=== PATIENT | female | born 1955 | race Caucasian/White ===

== ENCOUNTER → 2016-06-14 | Outpatient (REF) | payer BC ==
[2016-06-14 12:06] LABS: INR 0.89
[2016-06-14 12:19] LABS: BASO % 0.4 % (0.0-1.0); EOS # 0.9 K/mm3 (0.0-0.50); EOS % 8.3 % (0.0-3.0); LARGE UNSTAINED CELL # 0.3 K/mm3 (0.0-0.4); LARGE UNSTAINED CELL % 2.2 % (0.0-4.0); LYMPH # 2.4 K/mm3 (1.5-4.5); LYMPH % 21.3 % (24.0-44.0); MEAN CORPUSCULAR HEMOGLOBIN 30.4 pg (27.0-33.0); MEAN CORPUSCULAR HGB CONC 31.9 g/dl (32.0-36.5); MEAN CORPUSCULAR VOLUME 95.5 fl (80.0-96.0); MONO # 0.8 K/mm3 (0.0-0.8); MONO % 7.3 % (0.0-5.0); NEUTROPHILS # 6.8 K/mm3 (1.8-7.7); NEUTROPHILS % 60.5 % (36.0-66.0); PLATELET COUNT, AUTOMATED 205 k/mm3 (150-450); RED CELL DISTRIBUTION WIDTH 12.8 % (11.5-14.5); WHITE BLOOD COUNT 11.2 K/mm3 (4.0-10.0)
[2016-06-14 12:21] LABS: ANION GAP 8 MEQ/L (8-16); BLOOD UREA NITROGEN 15 MG/DL (7-18); CALCIUM LEVEL 8.6 MG/DL (8.8-10.2); CARBON DIOXIDE LEVEL 29 MEQ/L (21-32); CHLORIDE LEVEL 108 MEQ/L (98-107); CREATININE FOR GFR 0.67 MG/DL (0.55-1.02); GLOMERULAR FILTRATION RATE > 60.0 (>45); GLUCOSE, FASTING 158 MG/DL (80-110); SODIUM LEVEL 145 MEQ/L (136-145)
== END ==
LOC: M LABDRAW1 11:22
PROVIDERS: ATTEND Surgery Vascular Surgery
DX: Z01.818 Encounter for other preprocedural examination (principal); D69.8 Other specified hemorrhagic conditions; I70.211 Atherosclerosis of native arteries of extremities with intermittent claudication, right leg

== ENCOUNTER → 2016-07-29 | Outpatient (REF) | payer BC ==
[2016-07-29 17:53] LABS: ANION GAP 5 MEQ/L (8-16); BLOOD UREA NITROGEN 15 MG/DL (7-18); CALCIUM LEVEL 8.7 MG/DL (8.8-10.2); CARBON DIOXIDE LEVEL 32 MEQ/L (21-32); CHLORIDE LEVEL 105 MEQ/L (98-107); CREATININE FOR GFR 0.75 MG/DL (0.55-1.02); GLOMERULAR FILTRATION RATE > 60.0 (>45); GLUCOSE, FASTING 246 MG/DL (80-110); POTASSIUM SERUM 4.1 MEQ/L (3.5-5.1); SODIUM LEVEL 142 MEQ/L (136-145)
== END ==
LOC: M LABDRAWP 17:05
PROVIDERS: ATTEND Nurse Practitioner Adult Health
DX: I70.211 Atherosclerosis of native arteries of extremities with intermittent claudication, right leg (principal); I10 Essential (primary) hypertension

== ENCOUNTER → 2016-09-02 | Outpatient (REF) | payer BC ==
[2016-09-02 16:11] LABS: ANION GAP 9 MEQ/L (8-16); BLOOD UREA NITROGEN 18 MG/DL (7-18); CALCIUM LEVEL 8.9 MG/DL (8.8-10.2); CARBON DIOXIDE LEVEL 29 MEQ/L (21-32); CHLORIDE LEVEL 105 MEQ/L (98-107); CREATININE FOR GFR 0.87 MG/DL (0.55-1.02); GLOMERULAR FILTRATION RATE > 60.0 (>45); GLUCOSE, FASTING 307 MG/DL (80-110); POTASSIUM SERUM 4.4 MEQ/L (3.5-5.1); SODIUM LEVEL 143 MEQ/L (136-145)
== END ==
LOC: M LABDRAWP 15:36
PROVIDERS: ATTEND Nurse Practitioner Adult Health
DX: I10 Essential (primary) hypertension (principal); E10.40 Type 1 diabetes mellitus with diabetic neuropathy, unspecified

== ENCOUNTER → 2016-09-07 | Outpatient (CLI) | payer BC ==
--- NOTE | 2016-09-07 12:24 | REP ---
Clinical: Wheezing and shortness of breath . Comparison: 10/13/2015 . Technique: PA and lateral. Findings: The mediastinum and cardiac silhouette are normal. The lung back demonstrate chronic-appearing interstitial changes without acute consolidation, effusion, or pneumothorax. The skeletal structures are intact and normal. Impression: Chronic stable changes. No acute cardiopulmonary process. Signed by Malcolm Granados MD 09/07/2016 12:15 P
== END ==
LOC: M SMT 11:58
PROVIDERS: ATTEND Nurse Practitioner Family
DX: R06.2 Wheezing (principal); R06.02 Shortness of breath

== ENCOUNTER → 2016-10-11 | Outpatient (CLI) | payer BC ==
--- NOTE | 2016-10-11 18:19 | REP ---
REASON: Otalgia on the right. COMPARISON: 04/04/2015 which was normal. Bilateral IAC CT shows normal ossicles. There is a minimal amount of soft-tissue density seem adherent to the tympanic part of the chordae tympany on the right. This is confined. There is no abnormal soft-tissue density seen in the external auditory canal on either side. The tympanic membrane is intact but retracted right greater than left. This represents a change from the prior exam. The scutum is again seen to be sharp bilaterally. He tegument is again seen to be intact bilaterally. [place]ak space is clear bilaterally. The hypotympanum is clear bilaterally. The cochlea and semicircular canals are unchanged from the prior exam. IMPRESSION: 1. Retracted tympanic membrane bilaterally, right greater than left representing a change from the prior exam. 2. Small amount of soft tissue density along the tympanic part of the chordae tympany on the right but when compared to the prior exam this shows only a slight increase. Examination is otherwise unremarkable and stable. Signed by Chris Cotton DO 10/11/2016 07:02 P
== END ==
LOC: M RAD 16:30
PROVIDERS: ATTEND Physician Assistant Medical
DX: H73.893 Other specified disorders of tympanic membrane, bilateral (principal)

== ENCOUNTER → 2017-05-04 | Outpatient (CLI) | payer BC | LOC: M SMT 11:02 | DX: R05 Cough (principal); R06.02 Shortness of breath | CPT/HCPCS: 71046 ==

== ENCOUNTER → 2017-09-26 | Outpatient (REF) | payer BC ==
[2017-09-26 19:15] LABS: ANION GAP 6 MEQ/L (8-16); BLOOD UREA NITROGEN 16 MG/DL (7-18); CALCIUM LEVEL 8.6 MG/DL (8.8-10.2); CARBON DIOXIDE LEVEL 30 MEQ/L (21-32); CHLORIDE LEVEL 106 MEQ/L (98-107); CREATININE FOR GFR 0.96 MG/DL (0.55-1.30); GLOMERULAR FILTRATION RATE > 60.0 (>45); GLUCOSE, FASTING 242 MG/DL (70-100); POTASSIUM SERUM 4.2 MEQ/L (3.5-5.1); SODIUM LEVEL 142 MEQ/L (136-145)
== END ==
LOC: M LABDRAWP 17:18
DX: E10.40 Type 1 diabetes mellitus with diabetic neuropathy, unspecified (principal); E10.21 Type 1 diabetes mellitus with diabetic nephropathy; I10 Essential (primary) hypertension
CPT/HCPCS: 80048

== ENCOUNTER → 2018-04-10 | Outpatient (CLI) | payer BC ==
--- NOTE | 2018-04-11 06:02 | REP ---
Clinical: Lung screening. History of nicotine dependence Comparison: None Technique: Axial low-dose noncontrast images from the thoracic inlet to the upper abdomen using lung screening technique. Findings: The lung back are well-aerated. Chronic-appearing scattered interstitial changes are noted. Scattered bilateral soft tissue densities primarily noted in the bilateral apices as well as basilar right upper lobe (image 47) measure up to approximately 9.9 mm and are otherwise nonspecific in appearance. No consolidation, pleural effusion/reaction or pneumothorax. Tracheobronchial tree is patent. Mediastinum demonstrates atherosclerotic changes of the coronary arteries without cardiomegaly. Impression: Lung-RADS category IV-A. Management recommendations include 3-month low-dose CT follow-up exam with the probability of malignancy in the 5-15% range. Electronically Signed by Malcolm Granados MD 04/11/2018 05:54 A
== END ==
LOC: M RAD 11:04
PROVIDERS: ATTEND Internal Medicine Pulmonary Disease
DX: Z12.2 Encounter for screening for malignant neoplasm of respiratory organs (principal); F17.218 Nicotine dependence, cigarettes, with other nicotine-induced disorders; R91.8 Other nonspecific abnormal finding of lung field

== ENCOUNTER → 2018-04-16 | Outpatient (REF) | payer BC ==
[2018-04-16 13:20] LABS: BLOOD UREA NITROGEN 18 MG/DL (7-18); CALCIUM LEVEL 8.9 MG/DL (8.8-10.2); CARBON DIOXIDE LEVEL 28 MEQ/L (21-32); CHLORIDE LEVEL 105 MEQ/L (98-107); CREATININE FOR GFR 0.74 MG/DL (0.55-1.30); GLOMERULAR FILTRATION RATE > 60.0 (>45); GLUCOSE, FASTING 155 MG/DL (70-100); POTASSIUM SERUM 4.2 MEQ/L (3.5-5.1); SODIUM LEVEL 141 MEQ/L (136-145)
== END ==
LOC: M LABDRAWP 12:55
PROVIDERS: ATTEND Nurse Practitioner Adult Health
DX: I10 Essential (primary) hypertension (principal)

== ENCOUNTER → 2018-06-29 | Outpatient (CLI) | payer OTHER ==
--- NOTE | 2018-06-29 09:58 | REP ---
CT of the chest without IV contrast: Comparison is the low-dose lung screening CT dated 04/10/2018. There are the following lung nodules: Image 13, right apex, 6 mm. Image 15, right apex, pleural-based, 7 mm. Image 17 right 6 mm. Image 17 right apex 5 mm. Image 17, 5 mm, right apex. Image 20, 15 mm, right apex. Image 20, 6 mm, left apex. Image 21, 6 mm, left apex. Image 33, 5 mm, right upper lobe. Image 37, 7 mm, superior segment right lower lobe. Image 48, 8 mm, anterior inferior right upper lobe along the minor fissure. Image 51, 9 mm, anterior inferior right upper lobe along the minor fissure. Image 54, 6 mm, right middle lobe medial segment versus anterior inferior right upper lobe. Image 75, 5 mm, pleural-based, left lower lobe. There are no acute infiltrates. There are no pleural effusions. There is an anterior mediastinal node measuring up to 7 mm short axis, borderline enlarged. There is no axillary lymph node enlargement. In the absence of IV contrast the study is insensitive for hilar lymph node enlargement. The unenhanced thoracic aorta is unremarkable except for occasional calcified atheroma. Cardiac size is normal. In the visualized upper abdomen there is no adrenal mass. There are calcifications in the renal sanna bilaterally, likely vascular atheromatous calcifications. Impression: Multiple lung nodules as described. Borderline enlarged anterior mediastinal node. Electronically Signed by Kelechi Briceno MD 06/29/2018 09:50 A
== END ==
LOC: M RAD 08:35
PROVIDERS: ATTEND Internal Medicine Pulmonary Disease
DX: R91.8 Other nonspecific abnormal finding of lung field (principal)

== ENCOUNTER → 2018-10-04 | Outpatient (CLI) | payer OTHER ==
--- NOTE | 2018-10-04 15:30 | REP ---
CT CHEST WITHOUT IV CONTRAST: CT chest performed without IV contrast. Sagittal and coronal reconstruction images are performed. COMPARISON: 06/29/2018 Once again there are multiple subcentimeter nodular opacities bilaterally. The vast majority are in the range of about 2 to 4 mm in diameter. One nodule in the superior segment of the right lower lobe has slightly increased in size measuring 6 mm in diameter. It is seen on image 40. No new nodules are seen and all the other nodules are stable. There is some pleural thickening along the minor fissure. Subcentimeter mediastinal lymph nodes are present as well as axillary lymph nodes. No significant adenopathy is seen. There is moderate atherosclerotic calcification of the thoracic aorta without aneurysm. The heart is normal in size. There is no pleural or pericardial effusion. Adrenal glands are normal. IMPRESSION: Multiple subcentimeter nodular densities in both lungs primarily in the upper lobes. There is one nodule in the superior segment of the right lower lobe which has slightly increased in size measuring 6 mm in maximum diameter, previously 4 to 5 mm. Other nodules are stable and there is no new nodule present. Recommend followup CT in 3 to 6 months. Electronically Signed by Kelechi Hand MD 10/04/2018 04:50 P
== END ==
LOC: M RAD 13:14
PROVIDERS: ATTEND Internal Medicine Pulmonary Disease
DX: R91.8 Other nonspecific abnormal finding of lung field (principal); J98.4 Other disorders of lung

== ENCOUNTER → 2018-11-02 | Outpatient (CLI) | payer OTHER ==
[2018-11-02 16:45] LABS: BLOOD UREA NITROGEN 29 MG/DL (7-18); CREATININE FOR GFR 0.82 MG/DL (0.55-1.30); GLOMERULAR FILTRATION RATE > 60.0 (>45)
== END ==
LOC: M WUC 12:09
PROVIDERS: ATTEND Surgery Vascular Surgery
DX: I70.8 Atherosclerosis of other arteries (principal)

== ENCOUNTER → 2018-11-16 | Outpatient (CLI) | payer OTHER ==
[2018-11-16 16:21] LABS: BASO % 0.3 % (0.0-1.0); EOS # 0.2 10^3/uL (0.0-0.50); EOS % 1.6 % (0.0-3.0); HEMATOCRIT 41.4 % (36.0-47.0); HEMOGLOBIN 13.4 g/dl (12.0-15.5); LYMPH # 1.7 10^3/uL (1.5-4.5); LYMPH % 12.4 % (24.0-44.0); MEAN CORPUSCULAR HEMOGLOBIN 31.6 pg (27.0-33.0); MEAN CORPUSCULAR HGB CONC 32.4 g/dl (32.0-36.5); MEAN CORPUSCULAR VOLUME 97.6 fl (80.0-96.0); MONO # 0.7 10^3/uL (0.0-0.8); MONO % 5.5 % (0.0-5.0); NEUTROPHILS # 10.6 10^3/uL (1.8-7.7); NEUTROPHILS % 79.6 % (36.0-66.0); PLATELET COUNT, AUTOMATED 255 10^3/uL (150-450); RED BLOOD COUNT 4.24 10^6/uL (4.00-5.40); WHITE BLOOD COUNT 13.4 10^3/uL (4.0-10.0)
[2018-11-16 16:37] LABS: BLOOD UREA NITROGEN 20 MG/DL (7-18); CALCIUM LEVEL 8.9 MG/DL (8.8-10.2); CARBON DIOXIDE LEVEL 28 MEQ/L (21-32); CHLORIDE LEVEL 108 MEQ/L (98-107); CREATININE FOR GFR 0.68 MG/DL (0.55-1.30); GLOMERULAR FILTRATION RATE > 60.0 (>45); GLUCOSE, FASTING 163 MG/DL (70-100); POTASSIUM SERUM 5.2 MEQ/L (3.5-5.1); SODIUM LEVEL 141 MEQ/L (136-145)
[2018-11-16 16:45] LABS: INR 0.99; PROTHROMBIN TIME 12.8 SECONDS (11.8-14.0)
[2018-11-16 16:46] LABS: PARTIAL THROMBOPLASTIN TIME 28.4 SECONDS (25.0-38.4)
== END ==
LOC: M WUC 14:00
PROVIDERS: ATTEND Surgery Vascular Surgery
DX: Z01.818 Encounter for other preprocedural examination (principal); I70.298 Other atherosclerosis of native arteries of extremities, other extremity; D69.8 Other specified hemorrhagic conditions

== ENCOUNTER → 2018-11-20 | Outpatient (CLI) | payer OTHER | LOC: M WUC 14:05 | PROVIDERS: ATTEND Surgery Vascular Surgery | DX: I70.298 Other atherosclerosis of native arteries of extremities, other extremity (principal) ==

== ENCOUNTER 2019-02-24 21:29 | Inpatient (IN) | payer OTHER ==
[~2019-02-24] VITALS: Ht 167.6 cm; Wt 94.4 kg
[2019-02-24] MEDS ORDERED: PROPOFOL 200 MG/20 ML VIAL As Ordered ONE (21:32)
[2019-02-24] MEDS ORDERED: PROPOFOL 1,000 MG/100 ML VIAL As Ordered ONE (21:33)
[2019-02-24 21:55] LABS: BASO # 0.1 10^3/uL (0.0-0.2); BASO % 0.3 % (0.0-1.0); EOS % 0.2 % (0.0-3.0); HEMATOCRIT 36.7 % (36.0-47.0); HEMOGLOBIN 10.8 g/dl (12.0-15.5); LYMPH # 1.4 10^3/uL (1.5-5.0); LYMPH % 8.6 % (24.0-44.0); MEAN CORPUSCULAR HEMOGLOBIN 29.8 pg (27.0-33.0); MEAN CORPUSCULAR HGB CONC 29.4 g/dl (32.0-36.5); MEAN CORPUSCULAR VOLUME 101.4 fl (80.0-96.0); MONO # 0.6 10^3/uL (0.0-0.8); MONO % 3.9 % (0.0-5.0); NEUTROPHILS # 14.3 10^3/uL (1.5-8.5); NEUTROPHILS % 86.2 % (36.0-66.0); PLATELET COUNT, AUTOMATED 451 10^3/uL (150-450); RED BLOOD COUNT 3.62 10^6/uL (4.00-5.40); WHITE BLOOD COUNT 16.6 10^3/uL (4.0-10.0)
[2019-02-24] MEDS ORDERED: PROPOFOL 1,000 MG in IV 1 EA IV SCH (22:00)
[2019-02-24] MEDS ORDERED: ROCURONIUM BROMIDE 50 MG/5 ML VIAL IV ONE (22:00)
[2019-02-24] MEDS ORDERED: ETOMIDATE INJ 20MG/10ML VIAL IV ONE (22:00)
[2019-02-24 22:08] LABS: ABG BASE EXCESS -3.3 (-2.0-2.0); ABG HCO3 25.8 MEQ/L (22.0-26.0); ABG O2 SATURATION 99.2 % (95.0-99.0); ABG PARTIAL PRESSURE CO2 69.5 mmHg (35.0-45.0); ABG PARTIAL PRESSURE O2 175.3 mmHg (75.0-100.0); ABG STANDARD HCO3 21.8 MEQ/L (22.0-26.0); ABG pH (ARTERIAL) 7.188 UNITS (7.350-7.450)
[2019-02-24] MEDS ORDERED: IPRA0.00 INH (22:20)
[2019-02-24] MEDS ORDERED: GABA-1171 PO ×2 (22:20)
[2019-02-24] MEDS ORDERED: CLOP75TA2 PO (22:20)
[2019-02-24] MEDS ORDERED: PRED5PAK PO (22:20)
[2019-02-24] MEDS ORDERED: BUPR75TA5 PO (22:20)
[2019-02-24] MEDS ORDERED: ADVA230A INH (22:20)
[2019-02-24] MEDS ORDERED: LORA-674 PO (22:20)
[2019-02-24] MEDS ORDERED: INCR1INH INH (22:20)
[2019-02-24] MEDS ORDERED: ATOR40TA75 PO (22:20)
[2019-02-24] MEDS ORDERED: BUDE0.5S6 INH (22:20)
[2019-02-24] MEDS ORDERED: PRED5TA PO (22:20)
[2019-02-24] MEDS ORDERED: AMLO5TAB6 PO (22:20)
[2019-02-24] MEDS ORDERED: ASPI81TA21 PO (22:20)
[2019-02-24] MEDS ORDERED: ADME100I SC (22:20)
[2019-02-24] MEDS ORDERED: COMBAER6 INH (22:20)
[2019-02-24 22:22] LABS: BLOOD UREA NITROGEN 19 MG/DL (7-18); CALCIUM LEVEL 8.3 MG/DL (8.8-10.2); CARBON DIOXIDE LEVEL 27 MEQ/L (21-32); CHLORIDE LEVEL 107 MEQ/L (98-107); CK-MB VALUE MASS 4.2 NG/ML (<3.6); CPK CREATINE PHOSPHOKINASE 153 U/L (26-192); CREATININE FOR GFR 0.85 MG/DL (0.55-1.30); GLOMERULAR FILTRATION RATE > 60.0 (>45); GLUCOSE, FASTING 313 MG/DL (70-100); MB/CK RELATIVE INDEX 2.75 (< OR =4); NT-PRO BNP 4620 PG/ML (<125); POTASSIUM SERUM 4.9 MEQ/L (3.5-5.1); SODIUM LEVEL 143 MEQ/L (136-145); TROPONIN I 0.28 NG/ML (< 0.10)
[2019-02-24] MEDS ORDERED: PROPOFOL 200 MG/20 ML VIAL IV ONE ×4 (22:30→23:45)
[2019-02-24] MEDS ORDERED: AZIT-12 PO (22:40)
[2019-02-24] MEDS ORDERED: ISOVUE-370 76% 100ML VIAL (Q9967) As Ordered ONE (22:43)
[2019-02-24 23:23] LABS: ABG BASE EXCESS -4.8 (-2.0-2.0); ABG HCO3 23.4 MEQ/L (22.0-26.0); ABG O2 SATURATION 99.3 % (95.0-99.0); ABG PARTIAL PRESSURE CO2 59.8 mmHg (35.0-45.0); ABG PARTIAL PRESSURE O2 180.5 mmHg (75.0-100.0); ABG STANDARD HCO3 20.5 MEQ/L (22.0-26.0); ABG TOTAL CO2 25.3 MEQ/L (23.0-31.0)
[2019-02-24 23:24] LABS: ABG pH (ARTERIAL) 7.211 UNITS (7.350-7.450)
--- NOTE | 2019-02-24 23:24 | REPVR ---
PROCEDURE INFORMATION: Exam: CT Angiography Chest With Contrast Exam date and time: 02/24/2019 10:57 PM Clinical history: 64 years old, female; Shortness of breath and other: Resp arrest; Prior surgery; Surgery date: <1 month; Patient HX: Three week arm to arm bypass repair; Additional info: SOB, recent surgery, resp arrest TECHNIQUE: Imaging protocol: Computed tomographic angiography of the chest with intravenous contrast. 3D rendering: MIP reconstructed images were created and reviewed. Radiation optimization: All CT scans at this facility use at least one of these dose optimization techniques: automated exposure control; mA and/or kV adjustment per patient size (includes targeted exams where dose is matched to clinical indication); or iterative reconstruction. Contrast material: ISOVUE 370; Contrast volume: 75 ml; Contrast route: IV; COMPARISON: CT Chest without contrast 10/04/2018 1:26 PM FINDINGS: Tubes, catheters and devices: Endotracheal tube demonstrated. Pulmonary arteries: There are no pulmonary emboli. Aorta: The aorta demonstrates moderate atherosclerotic calcification. There is no aortic dissection or aneurysm. Lungs: Multiple bilateral pulmonary parenchymal nodules are demonstrated measuring up to 7 mm in the right lower lobe. The nodules are not substantially changed in comparison to the prior study. Also noted is a pleural based opacity in the right lower lobe measuring 2.2 x 0.9 cm. This opacity was not demonstrated on the prior examination of 10/04/2018. Subpleural cystic changes in both apices associated with septal thickening consistent with upper lobe paraseptal emphysema. Pleural space: Unremarkable. No pneumothorax. No pleural effusion. Heart: Unremarkable. No cardiomegaly. No pericardial effusion. Lymph nodes: Unremarkable. No enlarged lymph nodes. Bones/joints: Unremarkable. No acute fracture. Soft tissues: Unremarkable. IMPRESSION: 1. Multiple bilateral pulmonary parenchymal nodules are demonstrated measuring up to 7 mm in the right lower lobe. The nodules are not substantially changed in comparison to the prior study. 2. Also noted is a pleural based opacity in the right lower lobe measuring 2.2 x 0.9 cm. This opacity was not demonstrated on the prior examination of 10/04/2018. Correlation with PET imaging or close interval followup in 3 months suggested. 3. Subpleural cystic changes in both apices associated with septal thickening consistent with upper lobe paraseptal emphysema. 4. There is no aortic dissection or aneurysm. 5. There are no pulmonary emboli. Electronically signed by: Archie Carballo 02/24/2019 23:23:43 PM
[2019-02-25] VITALS (46 sets, daily range): BP systolic 88–132; BP diastolic 45–62; O2SAT 95–98
[2019-02-25] MEDS ORDERED: LevoFLOXacin IV 500 MG in IV 1 EA IV SCH ×2
[2019-02-25] MEDS ORDERED: PROPOFOL 200 MG/20 ML VIAL IV ONE ×2 (00:07→00:32)
[2019-02-25] MEDS ORDERED: DEXTROSE 50% 50 ML SYRINGE IV PRN (00:15)
[2019-02-25] MEDS ORDERED: GLUCAGON FOR INJ 1 MG VIAL (J1610) SC PRN (00:15)
[2019-02-25] MEDS ORDERED: GLUCOSE 4 GM CHEW TABLET PO PRN (00:15)
[2019-02-25] MEDS: D5W/0.45% SODIUM CHLORIDE 1,000 ML IV SCH ×3 (00:40→21:40)
[2019-02-25] MEDS: MIDAZOLAM INJ 2 MG/2 ML VIAL (J2250) IV PRN ×7 (00:44→23:44)
--- NOTE | 2019-02-25 01:29 | REP ---
Clinical: Cough and dyspnea . Comparison: none Findings: Endotracheal tube approximately 3 cm above the jesenia. Nasogastric tube courses below left hemidiaphragm. The mediastinum and cardiac silhouette are stable and within normal limits for portable technique. The lung back demonstrate diffuse coarsened interstitial markings suggesting bronchitis versus chronic change. No focal consolidation. No obvious effusion. No pneumothorax. Skeletal structures intact. Impression: Endotracheal tube and nasogastric tube in satisfactory position. Diffusely coarsened interstitial markings raising the possibility of bronchitis and chronic reactive airway disease. Versus chronic change. Electronically Signed by Malcolm Granados MD 02/25/2019 01:19 A
[2019-02-25] MEDS: HumaLOG INSULIN (NovoLOG) PER UNIT SC SCH ×2 (02:00→05:37)
[2019-02-25] MEDS: methylPREDNISolone INJ 125 MG/2 ML VIAL (J2930) IV SCH ×5 (02:07→23:21)
[2019-02-25] MEDS: PROPOFOL 1,000 MG in IV 1 EA IV SCH ×7 (03:46→21:40)
[2019-02-25] MEDS: IPRATROPIUM 0.5MG/ALBUTEROL 2.5MG INH SOL UD 3ML (DUONEB)(J7620) NEB SCH ×6 (03:50→23:51)
[2019-02-25 06:24] LABS: BASO % 0.1 % (0.0-1.0); HEMATOCRIT 31.6 % (36.0-47.0); HEMOGLOBIN 9.4 g/dl (12.0-15.5); LYMPH # 0.4 10^3/uL (1.5-5.0); LYMPH % 2.8 % (24.0-44.0); MEAN CORPUSCULAR HEMOGLOBIN 30.1 pg (27.0-33.0); MEAN CORPUSCULAR HGB CONC 29.7 g/dl (32.0-36.5); MEAN CORPUSCULAR VOLUME 101.3 fl (80.0-96.0); MONO # 0.3 10^3/uL (0.0-0.8); MONO % 1.8 % (0.0-5.0); NEUTROPHILS # 14.6 10^3/uL (1.5-8.5); NEUTROPHILS % 94.1 % (36.0-66.0); RED BLOOD COUNT 3.12 10^6/uL (4.00-5.40); WHITE BLOOD COUNT 15.5 10^3/uL (4.0-10.0)
[2019-02-25 06:27] LABS: PLATELET COUNT, AUTOMATED 346 10^3/uL (150-450)
[2019-02-25 06:57] LABS: ALBUMIN 2.4 GM/DL (3.2-5.2); ALT/SGPT 23 U/L (12-78); BILIRUBIN,TOTAL 0.2 MG/DL (0.2-1.0); BLOOD UREA NITROGEN 20 MG/DL (7-18); CALCIUM LEVEL 7.6 MG/DL (8.8-10.2); CARBON DIOXIDE LEVEL 25 MEQ/L (21-32); CHLORIDE LEVEL 107 MEQ/L (98-107); CHOLESTEROL LEVEL 170 MG/DL (< 200); CK-MB VALUE MASS 4.5 NG/ML (<3.6); CPK CREATINE PHOSPHOKINASE 128 U/L (26-192); CREATININE FOR GFR 0.83 MG/DL (0.55-1.30); GLOMERULAR FILTRATION RATE > 60.0 (>45); GLUCOSE, FASTING 408 MG/DL (70-100); LDH LACTATE DEHYDROGENASE 270 U/L (84-246); MB/CK RELATIVE INDEX 3.52 (< OR =4); PHOSPHORUS LEVEL 3.2 MG/DL (2.5-4.9); SODIUM LEVEL 138 MEQ/L (136-145); TOTAL PROTEIN 5.4 GM/DL (6.4-8.2); TRIGLYCERIDES LEVEL 71 MG/DL (<150); TROPONIN I 0.37 NG/ML (< 0.10)
[2019-02-25] MEDS ORDERED: ASPIRIN 81 MG ENTERIC TAB PO SCH (09:00)
[2019-02-25] MEDS: amLODIPine 5 MG TAB PO SCH (09:00)
[2019-02-25] MEDS ORDERED: ASPIRIN 81 MG CHEW TABLET As Ordered ONE (09:15)
[2019-02-25] MEDS: buPROPion 75 MG TAB PO SCH ×2 (09:21→20:37)
[2019-02-25] MEDS: CLOPIDOGREL 75 MG TAB PO SCH (09:21)
[2019-02-25] MEDS: CHLORHEXIDINE GLUCONATE 0.12 % 15ML UDC (PERIDEX ORAL RINSE) MT SCH ×2 (09:21→20:36)
[2019-02-25] MEDS: PANTOPRAZOLE 40MG INJ (PROTONIX) (C9113) IV SCH (09:21)
[2019-02-25 09:22] LABS: ABG BASE EXCESS -3.3 (-2.0-2.0); ABG HCO3 23.2 MEQ/L (22.0-26.0); ABG O2 SATURATION 96.2 % (95.0-99.0); ABG PARTIAL PRESSURE CO2 48.3 mmHg (35.0-45.0); ABG PARTIAL PRESSURE O2 84.9 mmHg (75.0-100.0); ABG STANDARD HCO3 21.7 MEQ/L (22.0-26.0); ABG TOTAL CO2 24.7 MEQ/L (23.0-31.0); ABG pH (ARTERIAL) 7.299 UNITS (7.350-7.450)
[2019-02-25] MEDS: ASPIRIN 81 MG CHEW TABLET PO SCH (09:27)
--- NOTE | 2019-02-25 09:50 | CCN ---
DATE: 02/25/2019 START TIME: 839 STOP TIME: 913 I again attended Olivier Harrison now here in the intensive care unit. The patient has been examined and the chart reviewed and I spoke at length with the daughter at the bedside. Maximum temperature (T-max) overnight 98.5, blood pressure 90-130s, heart rate generally 70s-90s with sinus mechanism, respiratory rate 18 via the ventilator. Input and output 615 mL in with 640 mL out. White blood cell count 15.5, hemoglobin 9.4, platelet count 346,000, 94% segmented neutrophils, no bands. Sodium 138, potassium 5.0, chloride 107, CO2 25, BUN 20, creatinine 0.83, glucose 408, troponin 0.37. Repeat blood gas currently pending. Overnight, she was found to have a significant rectal prolapse. This was able to be reduced after an icepack was placed. However, with every cough, it reproduces and general surgery has been consulted. On exam, she is sedate. Moves all extremities. Pupils good reaction, sclerae are clear. Trachea is in the midline. Chest has diminished by symmetric expansion. There is mid to late expiratory wheezing persists. No significant focal adventitious breath sounds are identified. Dressings in place on pectoral surgical sites Cardiac exam is regular. Peripheral pulses are diminished but palpable. Abdomen is soft, nontender with active bowel sounds. No convincing organomegaly or masses. Extremities, again show her ischemic middle finger on the left. The remainder of the extremities are warm. Neurologically, she is sedate but moves all extremities. Most pressing problems requiring my immediate presence at the bedside: 1. Acute on chronic respiratory failure with hypoxemic hypercapnic. 2. Advanced obstructive lung disease. 3. Longstanding continued tobacco abuse. 4. Emphysema. 5. Obstructive sleep apnea syndrome. 6. Vascular disease. 7. Rectal prolapse. 8. Diabetes mellitus, insulin requiring. At this point, no further weaning from the vent is planned for today as she has significant wheezing persisting. I spoke at length with her daughter in this regard. Will continue the current steroids and empiric antibiotics. Will continue her inhaled bronchodilators. Regarding her diabetes, we will begin enteral feeds today and insulin coverage. She has very significant vascular disease. Troponins are borderline. No obvious ischemic changes on her EKG but will get an echocardiogram today. Again, I communicated this to her daughter. Regarding the rectal prolapse, we were able to reduce it but it is recurrent and I will have her seen by general surgery today. At this point, she remains critically ill. She is on ulcer and deep venous thrombosis (DVT) prophylaxis. We will proceed with weaning when it is appropriate. At this point, she remains critically ill and it is highly likelihood a compromise will lead to multiorgan dysfunction. I left the bedside at 0914 hours. An additional 34 minutes of critical care delivered at the bedside not including procedures. HAM
--- NOTE | 2019-02-25 10:01 | HPE ---
DATE OF VISIT/START TIME: 02/24/2019 AT 23:40 STOP TIME: 02/25/2019 AT 0030 HISTORY AND PHYSICAL/CRITICAL CARE ADMIT NOTE I was asked to attended Olivier Harrison here in the emergency room (ER). Patient known to me from the outpatient setting with advanced obstructive lung disease with obstructive apnea syndrome and profound vascular disease with continued tobacco abuse. She is accompanied by family. She is unable to give any history. She is intubated and sedated. Her son states that beginning today she was much more short of breath. She wore her BiPAP without much success. She is chronically on some prednisone, called for an increase, but this progressed. EMS was summoned. She was placed on BiPAP in the ambulance, but remained hypoxic. When she arrived here essentially apneic and was intubated. ALLERGIES: Listed as PENICILLIN and CODEINE. MEDICATIONS AT HOME: - insulin pump - BiPAP - gabapentin 100 mg in the morning, 200 mg at night - atorvastatin 40 mg daily - prednisone 5 mg daily - amlodipine 5 mg daily - aspirin 81 mg daily - loratadine 10 mg daily - Plavix 75 mg daily - bupropion 75 mg twice a day - INCRUSE one puff once a day - Advair HFA 230/21 two puffs twice a day - Pulmicort nebulizer 0.5 mg twice a day - DuoNebs as needed or Combivent Respimat PAST MEDICAL HISTORY: Significant for chronic hypoxemic hypocapnic respiratory failure, advanced obstructive lung disease, emphysema, lung nodules, current stable as of September, obstructive sleep apnea syndrome with compliance, significant vascular disease status 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 SOCIAL HISTORY: Continued tobacco abuse. Lives at home with supportive family. Recently retired. FAMILY HISTORY: Noncontributory. REVIEW OF SYSTEMS: As per the history of present illness, obtained from the son. GENERALIZED: Per the history of present illness. HEENT: Unremarkable for double vision or blurry vision. PULMONARY: As per history of present illness. CARDIAC: Unremarkable for angina. GI: Unremarkable for any recent history nausea or vomiting. : Unremarkable for dysuria or urgency. NEUROLOGIC: Significant for her vascular disease. ENDOCRINE: Significant for her diabetes. HEMATOLOGIC: Significant for her chronic anticoagulation. DERMATOLOGIC: Unremarkable for any new rashes or psoriasis. MUSCULOSKELETAL: Significant for chronic pain syndrome. IMMUNOLOGIC: Significant for seasonal allergies. PSYCHIATRIC: Unremarkable. PHYSICAL EXAMINATION: Reveals a female who appears her stated age, sedated and intubated here in the emergency room (ER). Heart rate 85 with a sinus mechanism. Blood pressure 128 systolic. Respiratory rate 18-22 if she does over breath the ventilatory and she is currently afebrile. HEENT: Shows her to be intubated with an oral endotracheal tube as well as oral gastric tube. Pupils are reactive. Scleral clear. Trachea is in the midline. She is mildly cushingoid. CHEST: Shows diminished, but symmetric expansion. There is minimal expiratory wheezing. No convincing egophony. No rubs. CARDIAC EXAM: Distant, but regular. Peripheral pulses are diminished, but palpable. Minimal edema. ABDOMEN: Soft with active bowel sounds. No convincing organomegaly or masses. EXTREMITIES: Show a necrotic tip of her middle finger on the left. No other rashes. NEUROLOGIC: She is sedate, but moves all extremities. PSYCHIATRIC EXAM: Shows her to be sedate. Laboratories obtained her in the ER shows a sodium of 143, potassium 4.9, chloride 107, CO2 27, BUN 17, creatinine 0.85, glucose 313, troponin 0.28, BNP 4620, white blood cell count 16.6, hemoglobin 10.8, platelet count 451,000, 18% segmented neutrophils, no bands. First blood gas done on arrival to the ER - pH 7.188, pCO2 of 69.5, p02 175.3, that was at 2202 hours. At 2312 hours pH up to 7.211, pCO2 59.8, p02 of 180.5. Chest x-ray and CT were reviewed. CT shows stability and no nodules, but there is a new density pleural based at right about 2 cm. No other obvious infiltrate. Minimal edema. No embolus. IMPRESSION: 1. Acute on chronic respiratory failure both hypoxemic and hypocapnic. 2. Continued tobacco abuse. 3. Obstructive apnea syndrome. 4. Vascular disease status post subclavian bypass with continued necrosis of the fingertip. 5. Continued tobacco abuse. 6. Hypertension. 7. Hypercholesterolemia. 8. Insulin dependent diabetes mellitus. 9. Chronic anticoagulation. RECOMMENDATIONS: At this point we will facilitate transfer to the intensive care unit. Ventilator settings have been adjusted. We will continue IV steroids and nebulized bronchodilators. We will begin empiric antimicrobials given her new density pleural base which may be infiltrate. She does have a mild elevation of her white count which could be the stress or infection as there no left shift, it could also be from her steroids. We will continue her chronic anticoagulation for her vascular disease in the form of Plavix and aspirin. She will be sedated as needed. We will begin enteral nutrition in the morning. She will be on a sliding scale insulin and if her sugars are difficult to control we can always begin and insulin drip. At this point she is critically ill. Family requests full code status and that will be honored. There is high likelihood of further compromise given her status. I left the beside at 0030 hours. A total of 50 minutes of critical care time delivered at the bedside not including procedures. HAM
[2019-02-25] MEDS ORDERED: HumaLOG INSULIN (NovoLOG) PER UNIT SC SCH (12:00)
[2019-02-25] MEDS ORDERED: VANCOMYCIN HCL 1,000 MG, VIAL MATE ADAPTER 1 EACH in D5W 250 ML IV ONE (16:15)
--- NOTE | 2019-02-25 16:28 | ECGEPIP ---
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
[2019-02-25] MEDS: ACETAMINOPHEN 325 MG/10.15 ML UDC FT PRN (16:53)
[2019-02-25] MEDS: SANTYL OINT 30GM TOP SCH (16:54)
[2019-02-25] MEDS ORDERED: ETOMIDATE INJ 20MG/10ML VIAL ONE (17:01)
[2019-02-25] MEDS ORDERED: ROCURONIUM BROMIDE 50 MG/5 ML VIAL ONE (17:01)
[2019-02-25] MEDS ORDERED: PROPOFOL 200 MG/20 ML VIAL ONE (17:01)
[2019-02-25 17:27] LABS: APPEARANCE, URINE HAZY (CLEAR); BACTERIA, URINE AUTO NEGATIVE (NEGATIVE); BILIRUBIN, URINE AUTO NEGATIVE (NEGATIVE); BLOOD, URINE BLOOD 1+ (NEGATIVE); COLOR, URINE YELLOW (YELLOW); GLUCOSE, URINE (UA) AUTO 3+ mg/dL (NEGATIVE); KETONE, URINE AUTO NEGATIVE (NEGATIVE); LEUKOCYTE ESTERASE, URINE AUTO 2+ (NEGATIVE); MUCUS, URINE SMALL (NEGATIVE); NITRITE, URINE AUTO NEGATIVE (NEGATIVE); PROTEIN, URINE AUTO 1+ mg/dL (NEGATIVE); RBC, URINE AUTO 7 /HPF (0-3); SPECIFIC GRAVITY URINE AUTO 1.024 (1.002-1.035); SQUAMOUS EPITHELIAL CELL UR AU 2 /HPF (0-6); UROBILINOGEN, URINE AUTO 0.2 mg/dL (0.0-2.0); WBC, URINE AUTO 9 /HPF (0-3)
[2019-02-25] MEDS: MEROPENEM INJ 1 GM in IV 1 EA IV SCH (18:01)
--- NOTE | 2019-02-25 18:01 | CR ---
DATE OF CONSULTATION: 02/25/2019 CONSULTATION REPORT FOR: Dr. Chan Jc REASON FOR CONSULTATION: Evaluation of fever in a patient who recently had a right to left subclavian bypass. Olivier is a 64-year-old female with severe peripheral vascular disease, chronic obstructive pulmonary disease (COPD), advanced obstructive lung disease and sleep apnea who had a right to left subclavian bypass done on 11/28/2018 at [facility] by Dr. Ambriz. The patient had a postoperative wound infection with dehiscence of the chest wall wounds bilaterally and she went for debridement on 01/11/2019. The patient had an appointment today to followup and remove the stitches. She had been on multiple antibiotic courses since November 2018. Since her surgery on 12/21/2018, she had seven days of ciprofloxacin. On 01/12/2019, she received Ceftin 500 mg for 10 days. She then received on 01/14/2019, Bactrim double strength for 10 days, 01/17/2019 Levaquin 750 mg for 14 days. Then she was in contact with somebody in the family who had whooping cough and therefore was given Zithromax on 02/18/2019 for five days with a refill that she did not get to [facility] because she ended up in the hospital yesterday with severe shortness of breath and was intubated. Her son states that beginning yesterday she developed severe shortness of breath. She wore her bilevel positive airway pressure (BiPAP) mask and was not able to have any relief. She is chronically on steroids and was admitted to the hospital after she was noted to be severely hypoxic and was intubated. She had a temperature of 103. Blood cultures have been drawn. They are still pending. ALLERGIES: PENICILLIN, CODEINE, but the patient can take cephalosporins. MEDICATIONS: - insulin pump - bilevel positive airway pressure (BiPAP) - gabapentin 100 mg in the morning and 200 mg at night - atorvastatin 40 mg daily - prednisone 5 mg daily - amlodipine 5 mg daily - aspirin 81 mg daily - loratadine 10 mg daily - Plavix 75 mg daily - bupropion 75 mg twice a day - Incruse one puff once a day - Advair two puffs twice a day - Pulmicort nebulizers 0.5 mg twice a day - DuoNebs as needed PAST MEDICAL HISTORY: 1. Hypoxemic hypocapnic respiratory failure. 2. Advanced chronic obstructive pulmonary disease (COPD). 3. History of lung nodules, stable as of September of 2018. 4. Obstructive sleep apnea. 5. Peripheral vascular disease status post right to left subclavian bypass with necrotic left middle finger. 6. History of cerebrovascular accident (CVA). 7. Continued tobacco abuse. 8. Hypercholesteremia. 9. Hypertension. PAST SURGICAL HISTORY: Right to left subclavian bypass 11/28/[address] Ambriz and debridement on 01/11/2019. She also follows up with Dr. Rosenberg at the wound clinic for debridement. SOCIAL HISTORY: Continued tobacco abuse. She lives at home with her son. 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 REVIEW OF SYSTEMS: Could not be obtained due to the fact that she is intubated and sedated. According to the family, she had fever only today. No nausea, vomiting or diarrhea. No urinary symptoms. No new rashes. No other complaints. PHYSICAL EXAMINATION: She is a flushed female, intubated, sedated, does not seem in any distress. Temperature is up to 102 today, pulse 119, respirations 15, blood pressure 88/58, oxygen saturation 95% on fraction of inspired oxygen (FiO2) of 40%. HEART: Normal S1, S2, tachycardiac. LUNGS: Few expiratory wheezes bilaterally. No rhonchi or rales. ABDOMEN: Soft, nontender. No hepatosplenomegaly. EXTREMITIES: No edema. CHEST WOUNDS: There is an open wound measuring about 1 cm x 1.5 cm on the left chest infraclavicular that tunnels about 1 cm with just bloody discharge. The right wound has sutures in place that were removed by Dr. Hernandez, about three sutures. There was a scab over it. There was also bloody discharge and no purulence. Left middle finger dry with dry necrosis. No purulence. Minimal erythema around it. LABORATORY DATA: White count is 15.5, hemoglobin 9.4, hematocrit 31.6, platelets 346, 94% neutrophils, 2% lymphocytes, 2% monocytes. Sodium 138, potassium 5, chloride 107, bicarbonate 25, BUN 20, creatinine 0.83, glucose 408, lactic acid 1.7, calcium 7.6, phosphorus 3.2, AST 22, ALT 23, LDH 270, total CPK 128, troponin 0.37, albumin 2.4. Blood cultures, two sets were drawn on 02/24/2019, one more on 02/25/2019. A urine culture is pending. Enterovirus PCR, rhinovirus positive. Urinalysis is pending. IMAGING STUDIES: CT angiogram done on 02/24/2019 showed multiple bilateral pulmonary parenchymal nodules up to 7 mm in the right lower lobe, not changed, a right pleural based opacity in the right lower lobe 2.2 x 0.9 cm seen on prior examination on 10/04/2018, and cystic changes and both ABCs consistent with emphysema. No PEs. Chest x-ray showed diffuse coarse interstitial markings raising the possibility of reactive airway disease. IMPRESSION: This is a 64-year-old female with a history of advanced chronic obstructive pulmonary disease (COPD), sleep apnea, continued tobacco abuse who has recently had a right to left subclavian bypass surgery who presented with acute shortness of breath with respiratory failure requiring intubation. Her arterial blood gas (ABG) on admission, pH was 7.188, pCO2 69, pO2 173. This was most likely related to a chronic obstructive pulmonary disease exacerbation from viral infection and not bacterial infection. Blood cultures are still pending. There is still concern whether her grafts could have caused a bacteremia and sepsis, although clinically the grafts look like they are healing very well and they are not purulent. You would expect some wound dehiscence or purulence if that was the source of infection. Both wounds have been cultured but Dr. Hernandez who also has seen the patient in consultation does not believe that this is the source of infection. PLAN: We will monitor blood cultures. Wound Gram-stain and cultures have been obtained. I would discontinue levofloxacin. The patient has been on outpatient Levaquin for 14 days and ciprofloxacin for seven days in the past two months and therefore if she has a gram-negative sepsis, she would have a resistant gram-negative to quinolones. Would continue with IV vancomycin and meropenem for presumed sepsis until results of cultures are available. If all blood cultures and wound cultures are negative then antibiotics could be discontinued and she would be treated for a COPD exacerbation from a viral infection. We will add procalcitonin for the morning. Thank you for the consultation. Case has also been discussed with Dr. Hernandez, Dr. Jc and Dr. Rosenberg who did a telephone wound consult.
--- NOTE | 2019-02-25 18:17 | CR ---
DATE OF CONSULTATION: 02/25/2019 CONSULTATION REPORT FOR: Dr. Chan Jc REASON FOR CONSULTATION: Regarding incisional wounds below right and left clavicle status post axillary-axillary artery bypass. A 64-year-old female, poorly controlled diabetic with a hemoglobin A1c of 8.6 ,advanced chronic obstructive pulmonary disease (COPD), still smoking heavily, was worked up for an ischemic distal left middle finger and found to have occlusive disease involving her left upper extremity. This was not amenable to angioplasty and therefore an axillary-axillary artery bypass utilizing a Jonancy- James graft was performed at [facility]. The graft is patent as demonstrated by a loud overlying Doppler signal. However, the lateral aspects of the right and left infraclavicular incisions where the graft was placed began to dehisce involving the lateral aspect. She was seen in our wound care center last week where gentle debridement was performed on each wound. There were no deep structures seen. No exposed graft or suture material noted. The wounds extended down into the subcutaneous tissue. There was no erythema or drainage noted. The patient was scheduled to be followed up in [place] for possible futher wound debridement to be performed in the operating room and consideration for possible repeat primary closure utilizing PriMatrix and/or EpiFix. Over the next few days, however, the patient went into respiratory failure and developed pneumonia, was admitted to [facility], and is in the intensive care unit (ICU) requiring intubation. I have been asked to comment on wound care instructions. When seen today, via telemedicine the patient is intubated and unresponsive to questions. The right infraclavicular incision site is clean, however there is a lateral wound dehiscence measuring 1.2 cm x 1.6 cm with a depth of 0.6 cm. There is exposed subcutaneous tissue without evidence of graft exposure or suture material noted. The left infra-clavicular incision is clean with a lateral Wound dehiscence measuring 1.3 cm x 1.0 cm with a depth of 1.0 cm. the wound base shows subcutaneous tissue without evidence of exposed graft. These two wounds are potentially serious and represent the possibility of further deterioration which could result in graft exposure a significant vascular emergency.. Our initial treatment was Iodosorb ointment to each wound daily and covering wound and incision sites with protective foam dressings. At this point, the patient is unstable and therefore not a candidate for aggressive wound debridement and closure.close observation is obviously indicated with daily wound assessment. Consideration for future wound closure should still be considered if the wound does not significantly improve. The distal left middle finger has demarcated with exposed distal bone and will have to be dealt with when the patient stabilizes. This will be a formal distal amputation but is not emergent at this time. Painting the distal finger wound with Betadine and covering with a foam dressing on an every other day basis is the suggested temporizing treatment. Note, I had discussed this case in detail with the original surgeon in [place], Dr. Ambriz, who is covering for Dr. Moreira. [facility]ITAL[facility]
--- NOTE | 2019-02-25 18:45 | CR.PDOC ---
General Date of Consultation: Feb 25, 2019 Consultation REASON FOR CONSULTATION/CHIEF COMPLAINT: Postoperative nonhealing wounds bilateral chest HISTORY OF PRESENT ILLNESS: Ms. Harrison is a 64-year-old patient admitted for a COPD exacerbation now intubated and sedated. Dr. Rosenberg called me to inform me that the patient had a history of a left third digit gangrene and revascularization in [place] with a right to left subclavian subclavian bypass. The incisions on her chest have dime size areas that did not heal laterally. They are clean, superficial, and do not tunnel. There were sutures in the right incision with a well-healed incision and I removed these. I thoroughly cleaned both incisions as well as the open areas. They will be redressed by the nurses according to Dr. Rosenberg's orders. I could Doppler a triphasic signal through the bypass over the chest. The left and right upper extremities are warm and well-perfused. At this time, no vascular intervention is needed. Please continue with local wound care. ALLERGIES: Please see below. HOME MEDICATIONS: Please see below. PAST MEDICAL HISTORY: COPD, obstructive sleep apnea, peripheral vascular disease, insulin-dependent diabetes, neuropathy, hypertension, obesity, tobacco abuse, mood disorder. PAST SURGICAL HISTORY: Right to left subclavian subclavian bypass with graft in [place] FAMILY HISTORY: Heart disease, cancer SOCIAL HISTORY: Patient is an active heavy smoker. REVIEW OF SYSTEMS: Unable to obtain because patient is intubated and sedated. PHYSICAL EXAMINATION: VITAL SIGNS: Please see below. GENERAL APPEARANCE: Medically stable HEENT: Normocephalic, TMI, PERRLA RESPIRATORY: Coarse breath sounds bilaterally CARDIOVASCULAR: Regular rate and rhythm ABDOMEN: Soft obese nontender EXTREMITIES: Perfusion bilateral upper extremities is intact. Dry gangrene of right third digit at the distal fingertip NEUROLOGICAL: Intubated and sedated PSYCHIATRIC: Intubated and sedated LABORATORY DATA: Please see below. ASSESSMENT/PLAN: 64-year-old same all status post a right to left subclavian subclavian bypass in [place] for ischemia left upper extremity, nonhealing lateral aspect of both incisions. 1. No vascular intervention needed at this time. These are superficial wounds and should heal. Recommend local wound care per Dr. Rosenberg's orders. We appreciate the opportunity to participate in the care of this patient. Vital Signs/I&O Vital Signs Date Time Temp Pulse Resp B/P (MAP) Pulse Ox O2 Delivery O2 Flow Rate FiO2 02/25/19 18:04 98.3 02/25/19 18:00 40 02/25/19 17:30 111 18 96/55 (69) 97 Ventilator I&O- Last 24 Hours up to 6 AM 02/25/19 06:00 Intake Total 468.9 ml Output Total 555 ml Balance -86.1 ml Laboratory Data Labs 24H Laboratory Tests 2 02/24/19 21:40: Bedside Glucose (Misc Panel) 305H 02/24/19 21:41: Immature Granulocyte % (Auto) 0.8, Neutrophils (%) (Auto) 86.2H, Lymphocytes (%) (Auto) 8.6L, Monocytes (%) (Auto) 3.9, Eosinophils (%) (Auto) 0.2, Basophils (%) (Auto) 0.3, Neutrophils # (Auto) 14.3H, Lymphocytes # (Auto) 1.4L, Monocytes # (Auto) 0.6, Eosinophils # (Auto) 0.0, Basophils # (Auto) 0.1, Nucleated Red Blood Cells % (auto) 0.0, Anion Gap 9, Glomerular Filtration Rate > 60.0, Lactic Acid Level 1.7, Calcium Level 8.3L, Total Creatine Kinase 153, Creatine Kinase MB 4.2H, Creatine Kinase MB Relative Index 2.75, Troponin I 0.28H, WB-Wsu-U-Type Natriuretic Peptide 4620H 02/24/19 22:02: Blood Gas Bicarbonate Standard 21.8L, Arterial Blood pH 7.188*L, Arterial Blood Partial Pressure CO2 69.5*H, Arterial Blood Partial Pressure O2 175.3H, Arterial Blood Total CO2 28.0, Arterial Blood HCO3 25.8, Arterial Blood Base Excess - 3.3L, Arterial Blood Oxygen Saturation 99.2H 02/24/19 23:12: Blood Gas Bicarbonate Standard 20.5L, Arterial Blood pH 7.211*L, Arterial Blood Partial Pressure CO2 59.8H, Arterial Blood Partial Pressure O2 180.5H, Arterial Blood Total CO2 25.3, Arterial Blood HCO3 23.4, Arterial Blood Base Excess - 4.8L, Arterial Blood Oxygen Saturation 99.3H 02/25/19 01:40: Bedside Glucose (Misc Panel) 382H 02/25/19 01:41: Bedside Glucose (Misc Panel) 372H 02/25/19 05:29: Bedside Glucose (Misc Panel) 387H 02/25/19 06:09: Immature Granulocyte % (Auto) 1.2, Neutrophils (%) (Auto) 94.1H, Lymphocytes (%) (Auto) 2.8L, Monocytes (%) (Auto) 1.8, Eosinophils (%) (Auto) 0.0, Basophils (%) (Auto) 0.1, Neutrophils # (Auto) 14.6H, Lymphocytes # (Auto) 0.4L, Monocytes # (Auto) 0.3, Eosinophils # (Auto) 0.0, Basophils # (Auto) 0.0, Nucleated Red Blood Cells % (auto) 0.0, Anion Gap 6L, Glomerular Filtration Rate > 60.0, Calcium Level 7.6L, Phosphorus Level 3.2, Total Bilirubin 0.2, Aspartate Amino Transf (AST/SGOT) 22, Alanine Aminotransferase (ALT/SGPT) 23, Alkaline Phosphatase 110, Lactate Dehydrogenase 270H, Total Creatine Kinase 128, Creatine Kinase MB 4.5H, Creatine Kinase MB Relative Index 3.52, Troponin I 0.37#H, Total Protein 5.4L, Albumin 2.4L, Albumin/Globulin Ratio 0.80L, Triglycerides Level 71, Cholesterol Level 170 02/25/19 08:57: Blood Gas Bicarbonate Standard 21.7L, Arterial Blood pH 7.299L, Arterial Blood Partial Pressure CO2 48.3H, Arterial Blood Partial Pressure O2 84.9, Arterial Blood Total CO2 24.7, Arterial Blood HCO3 23.2, Arterial Blood Base Excess - 3.3L, Arterial Blood Oxygen Saturation 96.2 02/25/19 11:40: Bedside Glucose (Misc Panel) 413H 02/25/19 16:28: Urine Color YELLOW, Urine Appearance HAZY, Urine pH 5.0, Urine Specific [place] 1.024, Urine Protein 1+H, Urine Glucose (Auto)(UA) 3+H, Urine Ketones (Auto) NEGATIVE, Urine Blood 1+H, Urine Nitrite NEGATIVE, Urine Bilirubin NEGATIVE, Urine Urobilinogen 0.2, Urine Leukocyte Esterase (Auto) 2+H, Urine WBC (Auto) 9H, Urine RBC (Auto) 7H, Urine Hyaline Casts (Auto) 1, Urine Bacteria (Auto) NEGATIVE, Urine Squamous Epithelial Cells 2, Urine Mucus (Auto) SMALL, Urine Sperm (Auto) CBC/BMP Laboratory Tests 02/24/19 21:41 02/25/19 06:09 Microbiology Microbiology 02/25/19 Gram Stain, Received Pending 02/25/19 Wound Culture, Received Pending 02/25/19 Gram Stain, Received Pending 02/25/19 Wound Culture, Received Pending 02/25/19 Blood Culture, Received Pending 02/25/19 Blood Culture, Received Pending 02/25/19 Urine Culture, Received Pending 02/25/19 Gram Stain - Final, Resulted 02/25/19 Sputum Culture, Resulted Pending 02/25/19 Respiratory Virus Panel (PCR) (RADHA) - Final, Complete Human Rhinovirus/Enterovirus 02/24/19 Blood Culture, Received Pending 02/24/19 Blood Culture, Received Pending Allergies Coded Allergies: Penicillins (Verified Allergy, Mild, RASH, 02/24/19) codeine (Verified Adverse Reaction, Intermediate, HALLUCINATIONS, 02/24/19) Home Medications Scheduled Amlodipine Besylate (Amlodipine Besylate) 5 Mg Tablet, 5 MG PO DAILY, (Reported) Aspirin (Aspir-Low) 81 Mg Tablet.dr, 81 MG PO DAILY, (Reported) Atorvastatin Calcium (Atorvastatin Calcium) 40 Mg Tablet, 40 MG PO DAILY, (Reported) Azithromycin (Azithromycin) 250 Mg Tablet, 250 MG PO DAILY, (Reported) Z-JANINE PRESCRIBED 02/24/19 X 5 DAYS Budesonide (Budesonide) 0.5 Mg/2 Ml Ampul.neb, 0.5 MG INH BID, (Reported) Bupropion HCl (Bupropion HCl) 75 Mg Tablet, 75 MG PO BID, (Reported) Clopidogrel Bisulfate (Clopidogrel) 75 Mg Tablet, 75 MG PO DAILY, (Reported) Fluticasone Propion/Salmeterol (Advair Hfa 230-21 Mcg Inhaler) 12 Gm Hfa.aer.ad, 2 PUFF INH BID, (Reported) Gabapentin (Gabapentin) 100 Mg Capsule, 100 MG PO QAM, (Reported) Gabapentin (Gabapentin) 100 Mg Capsule, 200 MG PO QHS, (Reported) Insulin Lispro (Admelog) 100 Unit/1 Ml Vial, 1 DOSE SC ASDIRECTED, (Reported) VIA INSULIN PUMP Ipratropium/Albuterol Sulfate (Iprat-Albut 0.5-3(2.5) mg/3 ml) 3 Ml Ampul.neb, 1 VIAL INH QID, (Reported) PER PT MED LIST - USES EITHER DUONEB OR COMBIVENT QID Ipratropium/Albuterol Sulfate (Combivent Respimat 20-100 Mcg) 4 Gm Mist.inhal, 1 PUFF INH QID, (Reported) PER PT MED LIST - USES EITHER DUONEB OR COMBIVENT QID Loratadine (Loratadine) 10 Mg Tablet, 10 MG PO DAILY, (Reported) Prednisone (Prednisone) 5 Mg Tablet, 5 MG PO DAILY, (Reported) MAINTENANCE DOSE 5 MG QD; 10 MG TAPER PRESCRIBED 02/24/19 Umeclidinium [place] (Incruse Ellipta) 62.5 Mcg Blst.w.dev, 1 PUFF INH QPM, (Reported) [place] ATKINS MD Feb 25, 2019 18:45
[2019-02-25] MEDS: INSULIN HUMAN REGULAR 100 UNITS in NS 99 ML IV SCH (20:36)
--- NOTE | 2019-02-25 20:51 | ECHO ---
DATE OF PROCEDURE: 02/25/2019 REFERRING PHYSICIAN: Dr. Chan Jc INDICATION: Respiratory failure. Height 168 cm, weight 89 kg. DIMENSIONS: IVS: 1.1 LV: 6.0 LVPW: 0.9 LA: 3.9 Aorta: 2.5 IVC: 2.5 Mitral E wave velocity: 122 A wave: 99 E prime septal: 5.4 E prime lateral: 5.2 FINDINGS: The study is a very limited technical quality with difficult visualization. The patient is in sinus tachycardia with ventricular rate approximately 120 beats per minute. Left ventricle is dilated. There appears to be global hypokinesis. Based on limited views, I estimate left ventricular ejection fraction (LVEF) around 35%. Right ventricle was poorly seen, does not appear grossly enlarged. Both atria appear grossly normal size. Limited visualization of aortic, mitral, tricuspid valves revealed no obvious abnormalities. Pulmonic valve was not seen. No pericardial effusion is noted. Inferior vena cava is dilated, and there is no appreciable collapse with respiration indicative of high central venous pressure. Aortic root is normal. Aortic arch and abdominal aorta were not seen. Doppler interrogation reveals no aortic stenosis or insufficiency. There is trace mitral and tricuspid insufficiency. Unfortunately, quality of TR jet was not sufficient to adequately estimate pulmonary artery pressure. Mitral inflow pattern and tissue Doppler imaging of mitral annulus revealed likely grade 2 diastolic dysfunction. CONCLUSIONS; 1. Study is of markedly limited technical quality. 2. Dilated left ventricle with global hypokinesis and estimated LVEF around 35%. 3. No hemodynamically significant valvular disease. 4. High central venous pressure. 5. Unable to estimate pulmonary artery pressure. COMMENT: Subacute bacterial endocarditis (SBE) prophylaxis is not recommended. Both ischemic and nonischemic causes of cardiomyopathy should be considered.
[2019-02-25] MEDS: INSULIN IV RATE CHANGE DOCUMENTATION ML/HR XX SCH (21:26)
[2019-02-26] VITALS (36 sets, daily range): BP systolic 80–121; BP diastolic 44–57; O2SAT 95–98
[2019-02-26] MEDS: PROPOFOL 1,000 MG in IV 1 EA IV SCH ×6 (00:12→21:55)
[2019-02-26] MEDS: MEROPENEM INJ 1 GM in IV 1 EA IV SCH ×3 (01:25→21:44)
[2019-02-26] MEDS: INSULIN IV RATE CHANGE DOCUMENTATION ML/HR XX SCH ×6 (01:32→23:04)
[2019-02-26] MEDS: IPRATROPIUM 0.5MG/ALBUTEROL 2.5MG INH SOL UD 3ML (DUONEB)(J7620) NEB SCH ×5 (04:21→19:56)
[2019-02-26] MEDS: methylPREDNISolone INJ 125 MG/2 ML VIAL (J2930) IV SCH ×3 (05:06→17:03)
[2019-02-26] MEDS: INSULIN HUMAN REGULAR 100 UNITS in NS 99 ML IV SCH ×2 (05:06→20:22)
[2019-02-26 05:09] LABS: BASO % 0.1 % (0.0-1.0); HEMATOCRIT 30.7 % (36.0-47.0); HEMOGLOBIN 9.2 g/dl (12.0-15.5); LYMPH # 0.5 10^3/uL (1.5-5.0); LYMPH % 2.9 % (24.0-44.0); MEAN CORPUSCULAR HEMOGLOBIN 29.8 pg (27.0-33.0); MEAN CORPUSCULAR VOLUME 99.4 fl (80.0-96.0); MONO % 5.4 % (0.0-5.0); NEUTROPHILS # 15.9 10^3/uL (1.5-8.5); NEUTROPHILS % 90.5 % (36.0-66.0); PLATELET COUNT, AUTOMATED 356 10^3/uL (150-450); RED BLOOD COUNT 3.09 10^6/uL (4.00-5.40); WHITE BLOOD COUNT 17.5 10^3/uL (4.0-10.0)
[2019-02-26 05:38] LABS: ALBUMIN 2.5 GM/DL (3.2-5.2); BILIRUBIN,TOTAL 0.1 MG/DL (0.2-1.0); CALCIUM LEVEL 7.9 MG/DL (8.8-10.2); CREATININE FOR GFR 1.38 MG/DL (0.55-1.30); GLOMERULAR FILTRATION RATE 41.1 (>45); PHOSPHORUS LEVEL 2.7 MG/DL (2.5-4.9); POTASSIUM SERUM 4.5 MEQ/L (3.5-5.1)
[2019-02-26 06:05] LABS: ABG HCO3 23.2 MEQ/L (22.0-26.0); ABG O2 SATURATION 99.4 % (95.0-99.0); ABG PARTIAL PRESSURE CO2 47.2 mmHg (35.0-45.0); ABG PARTIAL PRESSURE O2 152.6 mmHg (75.0-100.0); ABG TOTAL CO2 24.7 MEQ/L (23.0-31.0)
--- NOTE | 2019-02-26 07:39 | REP ---
Portable chest, 06:52 a.m., single AP view with the patient semi upright: Comparison is 02/24/2019. The endotracheal tube and nasogastric tube are unchanged. There is diffuse mild interstitial coarsening, unchanged. This could be acute, chronic or combination. There is focal increased density in the right costophrenic angle as an interval change. This may be artifact from positioning, infiltrate or pleural effusion. The sanna, mediastinum, skeletal structures are unremarkable. There are surgical clips in the left axilla, unchanged. Impression: The the no interval change except for increased density in the right costophrenic angle, as described. Electronically Signed by Kelechi Briceno MD 02/26/2019 07:30 A
[2019-02-26] MEDS: CHLORHEXIDINE GLUCONATE 0.12 % 15ML UDC (PERIDEX ORAL RINSE) MT SCH ×2 (08:11→20:22)
[2019-02-26] MEDS: SANTYL OINT 30GM TOP SCH (08:12)
[2019-02-26] MEDS: CLOPIDOGREL 75 MG TAB PO SCH (08:12)
[2019-02-26] MEDS: PANTOPRAZOLE 40MG INJ (PROTONIX) (C9113) IV SCH (08:12)
[2019-02-26] MEDS: ASPIRIN 81 MG CHEW TABLET PO SCH (08:12)
[2019-02-26] MEDS: buPROPion 75 MG TAB PO SCH ×2 (08:12→20:22)
[2019-02-26] MEDS: amLODIPine 5 MG TAB PO SCH (08:13)
[2019-02-26 09:24] LABS: CK-MB VALUE MASS 3.4 NG/ML (<3.6); MB/CK RELATIVE INDEX 1.6 (< OR =4); TROPONIN I 3.64 NG/ML (< 0.10)
--- NOTE | 2019-02-26 10:21 | CCN ---
DATE: 02/26/2019 START TIME: 849 STOP TIME: 945. I again attended Olivier Harrison in the intensive care unit. Patient has been examined and the chart reviewed. I spoke at length with the family at the bedside. Maximum temperature (T-max) overnight 99.2, blood pressure 85 to low 100s systolic. Respiratory rate 18 to the low 20s. Heart rate 70-100 with a sinus mechanism. Input and output midnight to midnight 2292 mL in with 1315 mL out. Sodium 138, potassium 4.5, chloride 106, CO2 23, BUN 38, creatinine 1.38m, glucose 272. Troponin up to 3.64 today. LFTs show a alkaline phosphatase 104, LDH 255. AST 24, ALT 21. White blood cell count 17.5, hemoglobin 9.2, platelet count 356,000, 90.5% segmented neutrophils, no bands. Blood gas done this morning on a PRVC rate of 18, tidal volume of 420, PEEP of 5, FiO2 35% has a pH of 7.31, pCO2 47.2, pO2 152.6, saturation 99.4%. Chest x-ray this morning demonstrates a question of a right lower lobe infiltrate. On exam, she is sedate but does respond appropriately to stimuli. Vitals signs as outlined above. HEENT: Otherwise normocephalic and atraumatic. Pupils do react. Sclerae are clear. Oral endotracheal and oral epigastric tube are in place. Chest shows diminished but symmetric expansion. There is mid to late expiratory wheeze. Some faint crackles at the extreme bases. No other focal adventitious breath sounds are identified. Cardiac exam is generally regular, peripheral pulses are diminished but palpable. No obvious edema. Abdomen soft, nontender with active bowel sounds. No convincing organomegaly or masses. Extremities show no cyanosis or clubbing. Neurologically, she is sedate but does move all extremities when aroused. Bilateral subclavian dressings are in place. Most pressing problems requiring my presence at the bedside: 1. Acute on chronic respiratory failure both hypoxemia and hypercapnic. 2. Longstanding advanced obstructive lung disease. 3. Vascular disease status post subclavian bypass. 4. Elevated troponin. 5. Renal insufficiency. 6. Diabetes mellitus, insulin requiring. 7. Longstanding continued tobacco abuse. She had an echocardiogram done yesterday, which does show her ejection fraction (EF) to be diminished at 35%. Central venous pressure (CVP) estimated to be on the higher side. Left ventricle is dilated and globally hypokinetic. No significant valvular disease identified and unable to estimate pulmonary pressures. We will repeat an EKG this morning. I have spoken with Dr. Rapp from cardiology who will see her in consultation. She is already on aspirin and Plavix. We await his opinion regarding her candidacy for further intervention. I spoke with the family regarding her multisystem dysfunction and her guarded prognosis at best. In view of her new renal insufficiency, I will have nephrology see her as well. We will lightened her sedation and work towards weaning in view of her diminished wheezing today. She had a fever yesterday which is improved today. She was seen by vascular surgery, infectious diseases, and chronic wound management team who all felt that her subclavian dressings and wounds appeared reasonable. Her CT of the chest did show a pleural-based abnormality, quite likely infiltrate and I suspect this is what we are seeing now in her chest x-ray. Will continue her current antimicrobials. Sugars are better controlled on an insulin drip. She is tolerating her tube feedings. She is anticoagulated with aspirin and Plavix as outlined above. At this point, however, she has multiorgan dysfunction and is critically ill. Her prognosis is guarded at best. I did discuss this with the family. I left the bedside at 0946 hours. 56 minutes of critical care time spent at the bedside not including procedures. HAM
[2019-02-26] MEDS ORDERED: NS 250 ML IV ONE (11:15)
--- NOTE | 2019-02-26 12:40 | CR ---
DATE OF CONSULTATION: 02/26/2019 REQUESTING PHYSICIAN: Dr. Chan Jc CONSULTING PHYSICIAN: Dr. Rojas REASON FOR CONSULTATION: Management of acute renal failure. CHIEF COMPLAINT: The patient presented to the hospital yesterday with progressive shortness of breath. NOTE: History was obtained from the patient's chart and from the medical team. The patient is unable to provide any history because she is intubated. HISTORY OF PRESENT ILLNESS: Olivier Harrison is a 64-year-old female with past medical history of advanced chronic obstructive pulmonary disease (COPD) with obstructive sleep apnea. She follows up with pulmonary service as outpatient. She is type 2 diabetic, insulin dependent and uses an insulin pump, history of hypertension, severe peripheral vascular disease, and chronic active tobacco smoker. Apparently, she has a normal renal function and she had a creatinine of 0.85 on arrival two days ago. The patient presented on the night of 02/24/2019 into morning of 02/25/2019 with severe progressive shortness of breath. She was found to be in acute on chronic hypercapnic respiratory failure. She needed intubation and on the night of 02/24/[address] she also [address] a CT angiogram of the chest and 75 mL of IV contrast was used to rule out acute pulmonary embolism. The patient's renal function has started deteriorating with a creatinine of 1.38 today. Nephrology service was called for further help in the management of this patient. The patient also developed olm-LE-[id number] myocardial infarction ([place]) with a troponin level of 3.6 today morning. I saw and evaluated the patient today morning at the bedside in the intensive care unit (ICU). Her sister and daughter were also present at the bedside. Some of the history was obtained from them. The patient is currently intubated and sedated with propofol. She is not on any vasopressors and blood pressures are in low 90s and some of the blood pressure readings are in the 80s since yesterday. The patient is nonoliguric and still making around 50 mL of urine an hour. PAST MEDICAL HISTORY: Past medical history of advanced COPD, obstructive sleep apnea, diabetes mellitus type 2 insulin dependent, peripheral neuropathy, hyperlipidemia, peripheral vascular disease, chronic active smoker, history of lung nodules. PAST SURGICAL HISTORY: Status post right to left subclavian bypass in November 2018. ALLERGIES: She is allergic to PENICILLIN and CODEINE. FAMILY HISTORY: No significant family history of end-stage renal disease requiring hemodialysis. SOCIAL HISTORY: She is an active tobacco smoker. She lives at home with her son. There is no history of illicit drug abuse or alcohol abuse. REVIEW OF SYSTEMS: The patient is intubated and sedated at this time, she is unable to provide any reliable review of systems. PHYSICAL EXAMINATION: General: The patient is intubated, sedated, laying in bed, and eyes are closed. Vital Signs: Temperature is 99.2 degrees Fahrenheit, blood pressure is 90/53, pulse is 100, respiratory rate of 20, saturating 97% on the vent with 40% FiO2. Intake and Output: Urine output recorded as 1.3 liters yesterday and 850 mL so far today since overnight. Head and Neck Exam: The patient is eyes are closed. Pupils are equally reactive to light. She has an nasogastric tube (NGT) and an endotracheal tube. Neck is supple. There is mild elevation of jugular venous distention (JVD). Cardiovascular: S2 and S2. Tachycardia. No edema of the bilateral lower extremities. Respiratory: The patient has diffuse rales all over in the anterior and posterior lung back. Abdomen: Soft. Positive bowel sounds. Nontender. No organomegaly was noted. Genitourinary: She has an indwelling Gay catheter and urine in the bag is a light yellow color. Musculoskeletal: She has clubbing of fingernails. Pulses are only 1+. Extremities: No extremity edema was noted. 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 She responds to painful stimuli. Skin: The patient has dry scaly skin. No rashes were noted. LAB REVIEW: CBC showed WBC 17.5, hemoglobin 9.2, platelets of 356. Urinalysis done yesterday showed 1+ protein, 3+ glucose, 1+ blood, 2+ leukocyte esterase, WBCs were only 9. ABG done today morning showed pH 7.3, pCO2 of 47, pO2 152, bicarb is 23, and O2 sat is 99%. BMP done today showed sodium 138, potassium 4.5, chloride 106, bicarb 23, BUN 38, creatinine is 1.38 and it was 0.83 yesterday, sugar 272, calcium 7.9, phosphorus 2.7, total bilirubin 0.1, lactate dehydrogenase 255, troponin 3.6, and albumin is 2.5. Microbiology: Respiratory viral panel is positive for human rhinovirus enterovirus. Blood cultures are negative so far. IMAGING STUDIES: The patient got a CT angiogram of the chest done on with 75 mL of IV contrast. It showed multiple bilateral nodules, upper lobe paraseptal emphysema, no pulmonary emboli. CURRENT INPATIENT MEDICATIONS: The patient's medications were all reviewed by myself. She is on D5 half-normal saline at 50 mL an hour. She is on propofol. She was on meropenem 1 gram IV q. eight hourly and I have decreased the dose to q. 12 hourly because of acute renal failure and low GFR. She got one dose of IV vancomycin yesterday. She is on amlodipine 5 mg by mouth daily, which I am stopping, she is not receiving that anyways because of low blood pressure. She is on aspirin 81 mg daily, Wellbutrin 75 mg by mouth twice a day and Plavix 75 mg daily. She is getting Solu-Medrol 880 mg IV every six hourly, Versed p.r.n. for agitation and Protonix 40 mg IV daily. She is getting DuoNeb nebulizations every four hours. ASSESSMENT: 64-year-old female with advanced COPD, chronic active smoker, type 2 diabetic insulin dependent, peripheral vascular disease, and recent admission with acute COPD exacerbation causing acute hypercapnic respiratory failure needing intubation, most likely secondary to acute rhinovirus enterovirus infection. Nephrology service following the patient for acute renal failure. PLAN: 1. Acute renal failure. It is multifactorial. The patient got 75 mL of IV contrast on the night of February 24. Usually contrast induced nephropathy starts showing up after about 48 hours. On top of that, the patient is having hypotensive episodes while she is intubated and being sedated with propofol. I looked at the echocardiogram. The patient has hypokinesis of the left ventricle. I am going to give the gentle IV fluid bolus of 250 mL IV and try to maintain a MAP of above 70. Continue IV fluid hydration with D5 half-normal saline at 50 mL an hour. The patient is nonoliguric, still making about 50-60 mL of her urine an hour. I expect renal recovery over the next 48 hours. Electrolytes are within the acceptable range. 2. Acute on chronic respiratory acidosis. The patient's serial ABGs are being monitored by pulmonary service. Acidosis is improving. Vent management is as per pulmonary. Serum bicarb level is appropriate. 3. Diabetes mellitus type 2, insulin dependent. The patient is currently on an insulin drip and she continues to be on D5 half-normal saline. Glucose levels are optimal at this time. 4. Leukocytosis. The patient's cultures are negative so far apart from a respiratory viral infection. She is empirically being covered with IV meropenem. I have decreased the dose to 1 gram IV q. 12 hourly because of acute kidney injury. She is also getting vancomycin, dose will be adjusted by pharmacy. 5. Zhv-ZI-yrjviwney [place], likely stress induced ischemia. The patient is already getting aspirin and Plavix. She is not a candidate for beta tristin or JANELL inhibitors at this time because of hypotension. Amlodipine is being stopped because of low blood pressures. The rest of the management is as per cardiology recommendations. 6. Acute hypercapnic respiratory failure. The patient is currently on some IV Solu-Medrol and DuoNeb nebulizations. ABGs are improving. Vent management is as per pulmonary service. Thank you for involving me in the care of this patient. I shall be happy to follow the patient along with you tomorrow morning.
--- NOTE | 2019-02-26 13:06 | CR.PDOC ---
General Surgery Consultation Date of Consultation 02/25/19 History and Physical CONSULT REPORT FOR: Dr. Jc REASON FOR CONSULTATION: rectal prolapse HISTORY OF PRESENT ILLNESS: I was asked to consult on Mrs. Harrison who is currently admitted in ICU for respiratory failure, worsening of her baseline COPD she was noted to have rectal prolapse during her admission last night. She is currently intubated and sedated so the history was obtained from her daughter was at the bedside. She is not aware of her current state of the rectal prolapse but she tells me that she has had previous surgery by colorectal surgeon in [place] for her rectal prolapse. She could not tell me if she has incontinence her baseline constipation or whether the prolapse is always protruding out or does come back in. As mentioned the rectum since prolapsing out. I called in Dr. Salazar last night for suggestions on how to deal with this and he suggested placing an some ice to reduce the prolapse. The nurse tells me that the prolapse was reduced back in easily but would soon protruded out soon as she coughs. No bowel movements yet since admission. No bleeding per rectum noted. PAST MEDICAL HISTORY: 1. COPD 2. Diabetes on insulin pump 3. Chronic hypoxemic hypercapnic respiratory failure with advanced obstructive lung disease, emphysema PAST SURGICAL HISTORY: INCLUDES: 1. Previous rectal prolapse surgery 2. Axillary bifemoral bypass with a nonhealing wound along the right chest area ALLERGIES: Please see below. HOME MEDICATIONS: Please see below. REVIEW OF SYSTEMS: Unobtainable due to patient's intubated status PHYSICAL EXAMINATION: VITALS SIGNS: Please see below. On examination patient is an intubated. Rectal examination shows full prolapse of the rectum. No associated ulcerations, bleeding. This does not seem to be acutely incarcerated as I'm able to push the prolapsed rectum back inside but would probably reduce outward. Patient has a very lax sphincter tone. No soilage. No associated monroe-anal rash. LABORATORY DATA: Please see below. IMPRESSION AND PLAN: Full rectal prolapse or procidentia Patient is a full rectal prolapse, has a very lax sphincter tone. I suspect her prolapse is always protruding outwards given the laxity of the rectal tone. She has a prior repair of her rectal prolapse. The details of this is unknown as this is done in an outside institution in [place]. The current problem right now lies in trying to protect the rectum from ulcerations, bleeding, irritation. Since this is not acutely incarcerated, there would be less chance of ischemia, edema to the prolapsing rectum but this may desiccate, cause ulcerations and local bleeding thus he suggested placing a small amount of hydrocolloid gel or lubricant gel to prevent desiccation of the prolapsed rectum. She is in no position right now for repair and further workup of the prolapse and this is usually performed by a colon and rectal surgeon which we do not have in our institution. I will follow-up the patient intermittently and pls call me if there are any ongoing acute issues with regards to this. Vital Signs Vital Signs Date Time Temp Pulse Resp B/P (MAP) Pulse Ox O2 Delivery O2 Flow Rate FiO2 02/26/19 08:13 100 90/53 02/26/19 08:10 99.2 20 97 Ventilator 40 I&Os I&O- Last 24 Hours up to 6 AM 02/26/19 06:00 Intake Total 2952.8 ml Output Total 1360 ml Balance 1592.8 ml Laboratory Data Labs 24H Laboratory Tests 2 02/25/19 16:28: Urine Color YELLOW, Urine Appearance HAZY, Urine pH 5.0, Urine Specific Adams 1.024, Urine Protein 1+H, Urine Glucose (Auto)(UA) 3+H, Urine Ketones (Auto) NEGATIVE, Urine Blood 1+H, Urine Nitrite NEGATIVE, Urine Bilirubin NEGATIVE, Urine Urobilinogen 0.2, Urine Leukocyte Esterase (Auto) 2+H, Urine WBC (Auto) 9H , Urine RBC (Auto) 7H, Urine Hyaline Casts (Auto) 1, Urine Bacteria (Auto) NEGATIVE, Urine Squamous Epithelial Cells 2, Urine Mucus (Auto) SMALL, Urine Sperm (Auto) 02/25/19 17:24: Bedside Glucose (Misc Panel) 421H 02/25/19 20:27: Bedside Glucose (Misc Panel) 551*H 02/25/19 21:24: Bedside Glucose (Misc Panel) 569*H 02/25/19 23:16: Bedside Glucose (Misc Panel) 497H 02/26/19 00:31: Bedside Glucose (Misc Panel) 452H 02/26/19 01:24: Bedside Glucose (Misc Panel) 432H 02/26/19 03:07: Bedside Glucose (Misc Panel) 348H 02/26/19 04:00: Bedside Glucose (Misc Panel) 336H 02/26/19 04:49: Immature Granulocyte % (Auto) 1.1, Neutrophils (%) (Auto) 90.5H, Lymphocytes (%) (Auto) 2.9L, Monocytes (%) (Auto) 5.4H, Eosinophils (%) (Auto) 0.0, Basophils (%) (Auto) 0.1, Neutrophils # (Auto) 15.9H, Lymphocytes # (Auto) 0.5L, Monocytes # (Auto) 1.0H, Eosinophils # (Auto) 0.0, Basophils # (Auto) 0.0, Nucleated Red Blood Cells % (auto) 0.1H 02/26/19 04:50: Anion Gap 9, Glomerular Filtration Rate 41.1L, Calcium Level 7.9L, Phosphorus Level 2.7, Total Bilirubin 0.1L, Aspartate Amino Transf (AST/SGOT) 24, Alanine Aminotransferase (ALT/SGPT) 21, Alkaline Phosphatase 104, Lactate Dehydrogenase 255H, Total Creatine Kinase 212H, Creatine Kinase MB 3.4, Creatine Kinase MB Relative Index 1.60, Troponin I 3.64#*H, Total Protein 6.0L, Albumin 2.5L, Albumin/Globulin Ratio 0.71L, Triglycerides Level 113, Cholesterol Level 179, Random Vancomycin Level 10.0 02/26/19 05:49: Blood Gas Bicarbonate Standard 22.0, Arterial Blood pH 7.310L, Arterial Blood Partial Pressure CO2 47.2H, Arterial Blood Partial Pressure O2 152.6H, Arterial Blood Total CO2 24.7, Arterial Blood HCO3 23.2, Arterial Blood Base Excess - 3.0L, Arterial Blood Oxygen Saturation 99.4H 02/26/19 05:57: Bedside Glucose (Misc Panel) 215H 02/26/19 06:54: Bedside Glucose (Misc Panel) 218H 02/26/19 09:15: Bedside Glucose (Misc Panel) 168H 02/26/19 11:48: Bedside Glucose (Misc Panel) 130H 02/26/19 12:00: CBC/BMP Laboratory Tests 02/26/19 04:49 02/26/19 04:50 Microbiology Microbiology 02/25/19 Gram Stain, Received Pending 02/25/19 Wound Culture, Received Pending 02/25/19 Gram Stain, Received Pending 02/25/19 Wound Culture, Received Pending 02/25/19 Blood Culture, Received Pending 02/25/19 Blood Culture, Received Pending 02/25/19 Urine Culture, Received Pending 02/25/19 Gram Stain - Final, Resulted 02/25/19 Sputum Culture, Resulted Pending 02/25/19 Respiratory Virus Panel (PCR) ([facility]) - Final, Complete Human Rhinovirus/Enterovirus 02/24/19 Blood Culture - Preliminary, Resulted No growth after 24 hours . All specim... 02/24/19 Blood Culture - Preliminary, Resulted No growth after 24 hours . All specim... Home Medications Scheduled Amlodipine Besylate (Amlodipine Besylate) 5 Mg Tablet, 5 MG PO DAILY, (Reported) Aspirin (Aspir-Low) 81 Mg Tablet.dr, 81 MG PO DAILY, (Reported) Atorvastatin Calcium (Atorvastatin Calcium) 40 Mg Tablet, 40 MG PO DAILY, (Reported) Azithromycin (Azithromycin) 250 Mg Tablet, 250 MG PO DAILY, (Reported) Z-JANINE PRESCRIBED 02/24/19 X 5 DAYS Budesonide (Budesonide) 0.5 Mg/2 Ml Ampul.neb, 0.5 MG INH BID, (Reported) Bupropion HCl (Bupropion HCl) 75 Mg Tablet, 75 MG PO BID, (Reported) Clopidogrel Bisulfate (Clopidogrel) 75 Mg Tablet, 75 MG PO DAILY, (Reported) Fluticasone Propion/Salmeterol (Advair Hfa 230-21 Mcg Inhaler) 12 Gm Hfa.aer.ad, 2 PUFF INH BID, (Reported) Gabapentin (Gabapentin) 100 Mg Capsule, 100 MG PO QAM, (Reported) Gabapentin (Gabapentin) 100 Mg Capsule, 200 MG PO QHS, (Reported) Insulin Lispro (Admelog) 100 Unit/1 Ml Vial, 1 DOSE SC ASDIRECTED, (Reported) VIA INSULIN PUMP Ipratropium/Albuterol Sulfate (Iprat-Albut 0.5-3(2.5) mg/3 ml) 3 Ml Ampul.neb, 1 VIAL INH QID, (Reported) PER PT MED LIST - USES EITHER DUONEB OR COMBIVENT QID Ipratropium/Albuterol Sulfate (Combivent Respimat 20-100 Mcg) 4 Gm Mist.inhal, 1 PUFF INH QID, (Reported) PER PT MED LIST - USES EITHER DUONEB OR COMBIVENT QID Loratadine (Loratadine) 10 Mg Tablet, 10 MG PO DAILY, (Reported) Prednisone (Prednisone) 5 Mg Tablet, 5 MG PO DAILY, (Reported) MAINTENANCE DOSE 5 MG QD; 10 MG TAPER PRESCRIBED 02/24/19 Umeclidinium Norman (Incruse Ellipta) 62.5 Mcg Blst.w.dev, 1 PUFF INH QPM, (Reported) Allergies Coded Allergies: Penicillins (Verified Allergy, Mild, RASH, 02/24/19) codeine (Verified Adverse Reaction, Intermediate, HALLUCINATIONS, 02/24/19) DILIA GUTIERREZ MD Feb 26, 2019 13:06
--- NOTE | 2019-02-26 13:32 | PHACANCOPD ---
PHARMACY VANCOMYCIN DOSING Pt Demographics Demographics Patient Age:64 , Weight:92.100 , Gender: female Adjusted Body Weight Date: 02/26/19, Adjusted Body Weight: Kg Events Past 24 Hours Events Past 24 Hours: YES: Change in CrCl, Elevation in WBC; NO: Dialysis, Diuretic Therapy, Fever, Pending Diagnostics, Pending Procedures, Other Vancomycin Vancomycin indication: Sepsis Vancomycin Target Ranges: 15-20 mcg/ml Vancomycin Load Y/N: No Load Dose Date Time Vancomycin Load Dose: Date: Time: Vancomycin Dose Date: 02/26/19. Current Vancomycin Dose: [ 1 gram Q12H ] Intermittent Dosing?: No Labs Labs Vital Signs Label Value Date Time Patient Temperature 99.2 degrees F 02/26/19 0810 Temperature Source Temporal 02/26/19 0810 Pulse 100 02/26/19 0810 Blood Pressure Assessment 90/53 (65) 02/26/19 0810 Respiratory Rate 20 bpm 02/26/19 0810 Item Value Date Time White Blood Count 17.5 10^3/uL H 02/26/19 0449 White Blood Count 15.5 10^3/uL H 02/25/19 0609 White Blood Count 16.6 10^3/uL H 02/24/19 2141 Creatinine 0.85 MG/DL 02/24/19 2141 Creatinine 0.83 MG/DL 02/25/19 0609 Creatinine 1.38 MG/DL H # 02/26/19 0450 Glomerular Filtration Rate 41.1 L 02/26/19 0450 Glomerular Filtration Rate > 60.0 02/25/19 0609 Glomerular Filtration Rate > 60.0 02/24/19 2141 Lactic Acid Level 1.7 MMOL/L 02/24/19 2141 Micro Microbiology 02/25/19 Gram Stain, Received Pending 02/25/19 Wound Culture, Received Pending 02/25/19 Gram Stain, Received Pending 02/25/19 Wound Culture, Received Pending 02/25/19 Blood Culture, Received Pending 02/25/19 Blood Culture, Received Pending 02/25/19 Urine Culture, Received Pending 02/25/19 Gram Stain - Final, Resulted 02/25/19 Sputum Culture, Resulted Pending 02/25/19 Respiratory Virus Panel (PCR) ([facility]) - Final, Complete Human Rhinovirus/Enterovirus 02/24/19 Blood Culture - Preliminary, Resulted No growth after 24 hours . All specim... 02/24/19 Blood Culture - Preliminary, Resulted No growth after 24 hours . All specim... Creatinine Clearance Date:02/26/19. Creatinine Clearance: [ 41.7 mL/min ]. Assessment and Plan Maintaining Current Dose?: Yes Reason for dose change: No Dose Change Pharmacist Note Pharmacist Note Date: 02/26/19. Pharmacist note: Patient presented to [facility] on 02/25/19 complaining of shortness of breath post left subclavian bypass surgery. There was concern the patient may possibly have bacteremia after the surgery, so she was placed on vancomycin therapy, in addition to Merrem 1 gram every 12 hours. One gram of vancomycin was provided 02/25/19 @ 1900. She recently experienced an increase in her serum creatinine from baseline. We will initiate vancomycin 1 gram every 12 hours @ 1500 02/26/19, with a trough scheduled prior to the third dose. We will continue to monitor and make adjustments as needed. TRUDY JONES PHARMAC[facility] Feb 26, 2019 13:32
[2019-02-26 14:04] LABS: CHLORIDE,RANDOM URINE < 10 MEQ/L; POTASSIUM RANDOM URINE 20.9 MEQ/L
[2019-02-26] MEDS: VANCOMYCIN HCL 1,000 MG, VIAL MATE ADAPTER 1 EACH in D5W 250 ML IV SCH (14:24)
[2019-02-26 14:42] LABS: CK-MB VALUE MASS 2.7 NG/ML (<3.6); MB/CK RELATIVE INDEX 0.71 (< OR =4); TROPONIN I 4.76 NG/ML (< 0.10)
[2019-02-26] MEDS: ACETAMINOPHEN 325 MG/10.15 ML UDC FT PRN ×2 (16:02→19:06)
[2019-02-26] MEDS: MORPHINE 2 MG/ML 1ML VIAL (J2270) IV PRN (19:06)
--- NOTE | 2019-02-26 20:22 | CR ---
DATE OF CONSULTATION: 02/26/2019 REFERRING PHYSICIAN: Dr. Chan Jc INDICATION: Elevated troponin. HISTORY OF PRESENT ILLNESS: Mrs. Harrison is previously unknown to me. She is apparently a pleasant 64-year-old female with a multitude of medical problems who was admitted to [facility] on February 25, 2019 with fairly rapidly progressive respiratory failure that led to prompt intubation in the emergency room. It was felt that the presentation was consistent with chronic obstructive pulmonary disease (COPD) exacerbation, and she he has known chronic COPD with numerous similar presentations in the past, but never requiring ventilatory support. As part of the evaluation, cardiac enzymes and ECG were obtained. The initial troponin was marginally elevated at 0.28, but then subsequent followup revealed elevation this morning at 3.6 and this afternoon at 4.7. EKG reveals presence of sinus rhythm with lateral ST-segment depressions that were originally relatively subtle but more pronounced this morning. The patient is intubated and sedated and consequently unable to provide significant history, but based on available records, it does not appear that there were any complaints about chest discomfort prior to her being intubated. An echocardiogram performed last night was poor quality study, but revealed dilated left ventricle with global hypokinesis and overall estimated ejection fraction (EF) around 35%. I saw the patient in the intensive care unit (ICU) and talked to her sister and cousin. Unfortunately, due to her sedation, no history could be provided. Based on communication with Dr. Jc and review of records from [facility], it appears that she has never had any cardiac catheterization. There is no known history of prior coronary artery disease, and the only evaluation I was able to find was a nuclear stress test in 2014 that was performed in our office and revealed normal perfusion and preserved left ventricular systolic function. The patient recently underwent fairly large vascular surgery in [facility] but apparently no cardiac evaluation was performed during that hospitalization. PAST MEDICAL HISTORY: 1. COPD. 2. Obstructive sleep apnea. 3. Known multiple pulmonary nodules. 4. Hypertension. 5. Dyslipidemia. 6. Type 2 diabetes, insulin dependent. 7. Rectal prolapse. 8. Peripheral vascular disease with history of percutaneous intervention to the lower extremities (details not available) and recent right to left subclavian bypass performed on November 28. SURGICAL HISTORY: 1. Percutaneous intervention to lower extremities. 2. Right to left subclavian bypass on November 28 with subsequent exploration due to wound infection. SOCIAL HISTORY: The patient is recently retired. She has been a heavy smoker essentially all her life. No history of alcohol use. FAMILY HISTORY: Her father and sister had heart disease in young age. REVIEW OF SYSTEMS: These are not available due to the patient's condition. The rest as per history of present illness. PHYSICAL EXAMINATION: Mrs. Harrison is an elderly female who is currently sedated and intubated in the ICU. Her pupils are equal and reactive. Jugular venous pressure (JVP) is not elevated. Lungs: Reveal occasional expiratory wheezes. I do not appreciate any crackles or rhonchi. Air movement seems to be fair. Heart: Exam reveals very muffled heart sounds. I do not appreciate any gallop, rub or murmur. There are bandages over recent vascular access sites for revascularization surgery in both upper pectoralis areas. Abdomen is soft. No obvious tenderness or rebound tenderness. Extremities reveal no trophic defects on lower extremities. Peripheral pulses are detectable even though not of a great quality. There is a necrotic distal segment of left middle finger. Neurologically, evaluation difficult to interpret due to her sedation. LABORATORY DATA: As of this morning, basic metabolic panel reveals sodium 138, potassium 4.5, BUN 38, creatinine 1.4 and glucose of 272. Calculated GFR was 41. Liver function tests were normal. CK was 212 with CK-MB 3.4 and troponin 3.6. At 1401 hours, CK was 382 with CK-MB 2.7 and troponin 4.76. Albumin is 2.5. CBC revealed WBC count 17.5, hemoglobin 9.2, hematocrit 30.7, and platelet count 356,000. Echocardiogram and ECGs as per history of present illness. Chest x-ray reveals coarse lung back. It looks suspicious for vascular distribution. No obvious infiltrate. CT angiography of the chest revealed multiple pulmonary nodules but no distinct infiltrate as such. ASSESSMENT/PLAN: Mrs. Harrison is a 64-year-old female who has known severe peripheral vascular disease with revascularizations on both upper and lower extremities and a history of cerebrovascular accident years ago, but no history of known coronary artery disease. She presented with respiratory failure that was clinically most consistent with COPD exacerbation even though there is likely a component of congestive heart failure. Echocardiogram reveals global left ventricular systolic dysfunction based on very poor quality study and ejection fraction (EF) around 35%, and there are ischemic abnormalities on ECG together with elevated troponin. Overall, the patient is clearly critically ill. It is unclear to me whether the troponin elevation represents true ischemic event, which seems less likely. In differential diagnosis, I would consider type 2 myocardial infarction and also Takotsubo cardiomyopathy. But because of her known active smoking, presence of diabetes and extensive vascular disease, it is very likely that she indeed has underlying coronary artery disease. As far as the management is concerned, at this point I would continue supportive treatment. She is on aspirin and Plavix. I am somewhat reluctant to start her on full anticoagulation in addition to her current medications because she has fairly sizable rectal prolapse, and I am afraid that there would be a very high potential for bleeding. I will obtain followup electrocardiogram and cardiac enzymes again tomorrow morning. As far as congestive heart failure is concerned, she seems to be reasonably compensated respiratory rizzo while intubated. I am somewhat reluctant to give her diuretics in the view of recent renal failure, I suspect most likely as a consequence of administered IV contrast for CT angiography. My preference would be to wait until tomorrow morning. Depending on her creatinine, we can then decide whether she would tolerate diuretics. I do not believe that she can be given any beta-blockers due to her respiratory condition and also acutely exacerbated heart failure, and I do not think she would tolerate any vasodilators because her blood pressure has been running rather soft. I discussed this plan with Dr. Jc and with her sister who was present during my exam. We will reevaluate her on a daily basis. I contacted interventional cardiology in [place], and they are willing to accept the patient in case of urgent need.
[2019-02-26] MEDS ORDERED: NS 500 ML IV ONE (21:30)
--- NOTE | 2019-02-26 22:10 | ECGEPIP ---
[facility] Test Date: 2019-02-26 Pat Name: BHAVIK PINEDA Department: Room: [place] [address] Gender: Female Hebrew Teacher: IVANNA : 1955 Requested By: Chan Jc Order Number: [id number] Reading MD: Avinash Flores Measurements Intervals [place] Rate: 116 P: 80 [place]: 158 QRS: 64 QRSD: 95 T: -82 QT: 306 QTc: 425 Interpretive Statements Sinus tachycardia Nonspecific ST-T wave abnormalities Compared to prior tracing of 02/24/2019, heart rate is faster Electronically Signed on 02-26-2019 22:10:25 EST by Avinash Flores
[2019-02-26] MEDS ORDERED: NOREPINEPHRINE BITARTRATE 8 MG in D5W 492 ML IV SCH (23:00)
[2019-02-26 23:49] LABS: ABG BASE EXCESS -5.7 (-2.0-2.0); ABG O2 SATURATION 97.7 % (95.0-99.0); ABG PARTIAL PRESSURE CO2 46.5 mmHg (35.0-45.0); ABG STANDARD HCO3 19.8 MEQ/L (22.0-26.0); ABG TOTAL CO2 22.4 MEQ/L (23.0-31.0); ABG pH (ARTERIAL) 7.273 UNITS (7.350-7.450)
--- NOTE | 2019-02-26 23:53 | RO ---
DATE OF PROCEDURE: 02/26/2019 START TIME: 2319 PREPROCEDURE DIAGNOSIS: Hypotension. POSTPROCEDURE DIAGNOSIS: Hypotension. PROCEDURE: Insertion of triple lumen central venous catheter, site is right femoral vein. SURGEON: Dr. Chan Jc B2B SALES MANAGER: ANESTHESIA: Procedure was performed emergently. DESCRIPTION OF PROCEDURE: After the right femoral area was prepped and draped in the usual sterile manner, the area was anesthetized with 1% Xylocaine. Using a large bore needle, the right femoral vein was easily cannulated. In a modified Seldinger technique, a triple lumen central venous catheter was easily placed. Good venous return was obtained from all three ports. Each port was then flushed. The line was then sutured in place. A sterile dressing was applied. No immediate complications identified.
[2019-02-27] VITALS (35 sets, daily range): BP systolic 88–118; BP diastolic 51–59; O2SAT 96
[2019-02-27] MEDS ORDERED: SODIUM BICARBONATE 8.4% INJ 50 ML SYRINGE IV STA (00:01)
[2019-02-27] MEDS: methylPREDNISolone INJ 125 MG/2 ML VIAL (J2930) IV SCH ×3 (00:15→11:49)
[2019-02-27] MEDS: IPRATROPIUM 0.5MG/ALBUTEROL 2.5MG INH SOL UD 3ML (DUONEB)(J7620) NEB SCH ×5 (00:20→12:28)
[2019-02-27] MEDS: INSULIN IV RATE CHANGE DOCUMENTATION ML/HR XX SCH ×4 (01:02→06:48)
[2019-02-27] MEDS: MORPHINE 2 MG/ML 1ML VIAL (J2270) IV PRN (01:03)
[2019-02-27] MEDS: VANCOMYCIN HCL 1,000 MG, VIAL MATE ADAPTER 1 EACH in D5W 250 ML IV SCH (03:11)
[2019-02-27] MEDS: ACETAMINOPHEN 325 MG/10.15 ML UDC FT PRN (05:03)
[2019-02-27 05:25] LABS: BASO % 0.1 % (0.0-1.0); HEMATOCRIT 31.3 % (36.0-47.0); HEMOGLOBIN 9.3 g/dl (12.0-15.5); LYMPH # 0.6 10^3/uL (1.5-5.0); LYMPH % 3.1 % (24.0-44.0); MEAN CORPUSCULAR HEMOGLOBIN 29.5 pg (27.0-33.0); MEAN CORPUSCULAR HGB CONC 29.7 g/dl (32.0-36.5); MEAN CORPUSCULAR VOLUME 99.4 fl (80.0-96.0); MONO # 1.9 10^3/uL (0.0-0.8); MONO % 9.1 % (0.0-5.0); NEUTROPHILS # 17.8 10^3/uL (1.5-8.5); NEUTROPHILS % 86.7 % (36.0-66.0); PLATELET COUNT, AUTOMATED 352 10^3/uL (150-450); RED BLOOD COUNT 3.15 10^6/uL (4.00-5.40); WHITE BLOOD COUNT 20.6 10^3/uL (4.0-10.0)
[2019-02-27 05:51] LABS: ABG BASE EXCESS -3.3 (-2.0-2.0); ABG HCO3 23.8 MEQ/L (22.0-26.0); ABG O2 SATURATION 96.6 % (95.0-99.0); ABG PARTIAL PRESSURE CO2 52.1 mmHg (35.0-45.0); ABG PARTIAL PRESSURE O2 90.2 mmHg (75.0-100.0); ABG STANDARD HCO3 21.7 MEQ/L (22.0-26.0); ABG TOTAL CO2 25.4 MEQ/L (23.0-31.0); ABG pH (ARTERIAL) 7.277 UNITS (7.350-7.450)
[2019-02-27 05:59] LABS: ALBUMIN 2.5 GM/DL (3.2-5.2); BILIRUBIN,TOTAL 0.2 MG/DL (0.2-1.0); CALCIUM LEVEL 7.5 MG/DL (8.8-10.2); CREATININE FOR GFR 1.47 MG/DL (0.55-1.30); GLOMERULAR FILTRATION RATE 38.2 (>45); PHOSPHORUS LEVEL 3.4 MG/DL (2.5-4.9); TOTAL PROTEIN 5.7 GM/DL (6.4-8.2); TROPONIN I 35.4 NG/ML (< 0.10)
[2019-02-27] MEDS: INSULIN HUMAN REGULAR 100 UNITS in NS 99 ML IV SCH (06:06)
--- NOTE | 2019-02-27 07:57 | IPN ---
DATE: 02/27/2019 Mrs. Harrison unfortunately has not done well since yesterday starting yesterday evening she developed high fever that peaked over 103 and was associated to its onset of tachycardia. Eventually the temperature was brought down and this morning her documented temperature was only 100.7. It is associated with somewhat slowing of her heart rate that is currently around 100-210 range in the middle of night her blood pressure became soft and Dr. Jc came to hospital and inserted a triple-lumen catheter through the right femoral vein and started low dose Levophed. Vital signs: Blood pressure 106/52, heart rate currently 110, temperature as above. Saturation is 95% on 40% FIO2. Her fluid balance yesterday was recorded as positive 2900. She made about was about 1400 mL of urine. Weight is documented 94.4. She is intubated and sedated. Pupils are reactive and equal. 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 I would do not appreciate any crackles per se. Heart: Exam is completely overshadowed by loud respiratory sounds. I do not appreciate any gallop, murmur or rub. Abdomen is soft. No apparent guarding. Bowel sounds are somewhat sluggish but present. Extremities are free of edema. Peripheral pulses are palpable. Both lower extremities. I do not appreciate any trophic defects pulses in upper extremities are also present. LABORATORY:Her CBC this morning reveals WBC count 20.6 thousand with hemoglobin 9.3, hematocrit 31, platelet count is 352,000 in differential diagnosis. There is 87% neutrophils. Basic metabolic panel sodium 137, potassium 5.0, BUN 56, creatinine 1.5 and glucose 228. Her liver function tests are all markedly elevated today. CKs 2000 and troponin 35.4, albumin is 2.5 and microbiology revealed that the urine culture from February 25 in the evening is growing E-coli blood cultures have been all negative so far. ECG performed this morning reveals sinus rhythm and fairly subtle rather diffuse ST-segment depressions in managing it actually looks slightly improved compared to yesterday. ASSESSMENT/PLAN Mrs. Harrison is very sick lady. She has advanced COPD and now has evidence for sepsis, possibly urosepsis even though I would do not believe that this is quite can occlusive complicated by afs-UO-hpdeybarv myocardial infarction with worsening troponin elevation on top of that she developed acute on chronic renal failure and at this point is also pressor dependent. I will discuss further management with Dr. 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 Otherwise supportive management will be continued. Unfortunately she cannot receive any prior cardioprotective medications due to tenuous blood pressure and until her dependency of pressors will disappear I do not think it is a consideration to utilize any form of beta blockers going to give her statin, even though it is probably of very limited use in this setting acutely. Antibiotics per Dr. Jc and infectious disease directions. Her condition is certainly serious and prognosis is guarded at best.
[2019-02-27] MEDS: PANTOPRAZOLE 40MG INJ (PROTONIX) (C9113) IV SCH (08:47)
[2019-02-27] MEDS: CLOPIDOGREL 75 MG TAB PO SCH (08:49)
[2019-02-27] MEDS: CHLORHEXIDINE GLUCONATE 0.12 % 15ML UDC (PERIDEX ORAL RINSE) MT SCH (08:49)
[2019-02-27] MEDS: buPROPion 75 MG TAB PO SCH (08:49)
[2019-02-27] MEDS: SANTYL OINT 30GM TOP SCH (08:49)
[2019-02-27] MEDS: ASPIRIN 81 MG CHEW TABLET PO SCH (08:50)
--- NOTE | 2019-02-27 09:03 | REP ---
PORTABLE CHEST X-RAY: Single view. HISTORY: Respiratory failure. COMPARISON STUDY: February 26, 2019. FINDINGS: Monitoring electrodes overlie the chest. Endotracheal tube is seen in good position terminating at the level of the transverse aorta. NG tube is seen coursing through the mediastinum although its distal tip cannot be seen on today's radiograph. There is mild increased density in the right base and just above the minor fissure on the right. There is diffuse prominence of pulmonary interstitial markings consistent with interstitial edema. There are surgical clips in the axillary regions bilaterally. Electronically Signed by Chevy Olmstead MD 02/27/2019 10:22 A
[2019-02-27] MEDS ORDERED: HEPARIN SOD (PORCINE) 5000 UNITS/ML VIAL IV STA (09:22)
[2019-02-27] MEDS ORDERED: HEPARIN DRIP 25,000 UNITS in IV 1 EA IV SCH (09:42)
[2019-02-27] MEDS ORDERED: HEPARIN SOD (PORCINE) 5000 UNITS/ML VIAL IV PRN (09:45)
--- NOTE | 2019-02-27 09:59 | DSES ---
DATE OF ADMISSION: 02/25/2019 DATE OF TRANSFER: 02/27/2019 ADMITTING DIAGNOSES: 1. Chronic obstructive pulmonary disease (COPD) with exacerbation. 2. Acute on chronic respiratory failure, both hypoxemic and hypercapnic. 3. Severe peripheral vascular disease, status post bilateral femoral stents and subclavian bypass. 4. Longstanding continued tobacco abuse. 5. Cardiomyopathy with ejection fraction of 35%. 6. Abnormal troponin consistent with acute myocardial event. 7. Insulin dependent diabetes mellitus. 8. Obstructive Sleep Apnea Syndrome 9. Rectal Prolapse DISCHARGE MEDICATIONS: -Heparin Drip.1000u/hr - Versed as needed - Propofol drip, titrate for a Amin 3 to 4. - albuterol nebulizers every 4 hours and every 2 hours as needed - Protonix 40 mg IV - morphine sulfate as needed - Solu-Medrol 80 mg IV every 6 hours - Plavix 75 mg daily - Wellbutrin 75 mg twice a day - insulin via continuous drip - meropenem 1 gram IV every 12 hours - vancomycin 1 gram IV every 12 hours - Levophed currently at 2 mcg per minute HISTORY: Mr. Harrison is a 64-year-old female with advanced obstructive lung disease and long-standing continued tobacco abuse. She is known to have severe peripheral vascular disease and status post stenting to the lower extremities and a recent subclavian bypass for an ischemic digit on the left hand. She was admitted with an exacerbation of her lung disease, requiring intubation and mechanical ventilation. Physical examination at the time of admission showed an intubated female in the emergency department, initially blood pressure in the 130 systolic with a heart rate in the low 100s. She was afebrile. HEENT: Showed oral, tracheal and gastric tube. Pupils do react. Trachea is in the midline. CHEST: Diminished but symmetric expansion. There was diffuse mid to late expiratory wheezing. CARDIAC: Exam was distant, borderline tachycardic. Peripheral pulses palpable. Trace edema at best. She did have her dressings for her subclavian surgical sites. ABDOMEN: Soft, nontender with normoactive bowel sounds. No convincing organomegaly or masses. EXTREMITIES: Without cyanosis or clubbing. She has an ischemic distal fingertip on the middle finger of the left hand. NEUROLOGIC: She was sedate but moved all extremities. LABORATORIES: Blood gas showed a pH of 7.188, PCO2 of 69.5, PO2 of 175.3. Sodium 143, potassium 4.9, chloride 107, CO2 of 27, BUN 19, creatinine 0.85, BNP at that time 4620, white blood cell count 16.6, hemoglobin 10.8, platelet count 451,000. It should be noted that she was on prednisone prior to admission. HOSPITAL COURSE: She was admitted to the intensive care unit (ICU). She was placed on empiric antimicrobials. Concern was raised over her surgical sites and these were seen by the wound care team, as well as vascular surgery and infectious disease. The sites seemed clear. Her antibiotics were adjusted to meropenem and vancomycin. Question on x-ray of a right lower lobe infiltrate, but sputum showed only normal kiah. Urine did grow Escherichia (E) coli . Respiratory panel was positive for human rhinovirus/enterovirus. She had a bump in her BUN and creatinine felt to be on the basis of contrast dye that she had received for a study in the emergency room. She remains nonoliguric. She had a mild elevation in troponin at 0.2, 0.3. ECG showed some deepening of her inferolateral ST segments and troponin at that point in time was 3.5. She was seen by nephrology and cardiology. Overnight last night, she had a mild decline in her blood pressure and was placed on Levophed. This morning troponin is elevated at 35.4. She has been accepted in transfer by [facility] for intervention. Other lab results at the time of transfer show a sodium of 137, potassium 5.0, chloride 105, CO2 of 26, BUN 56, creatinine 1.47. White blood cell count 20.6, hemoglobin 9.3, platelet count 352,000. Most recent blood gas done on a PRVC, rate of 18, tidal volume 420, PEEP of 5 and FiO2 of 35% is pH 7.277, PCO2 of 52.1, PO2 of 90.2. She remains on low dose propofol, as needed Versed, and Levophed at 2 mcg. Ventilator adjustments have been made pending her transfer. For other pertinent laboratories, please refer to the hospital record. Condition on transfer is critical but stable for transfer. Accepting physician will be Dr. Baumann at [facility], . H[facility]
[2019-02-27] MEDS: MEROPENEM INJ 1 GM in IV 1 EA IV SCH (10:41)
[2019-02-27] MEDS: MIDAZOLAM INJ 2 MG/2 ML VIAL (J2250) IV PRN (11:59)
--- NOTE | 2019-02-27 13:14 | IPN ---
DATE OF SERVICE: 02/27/2019 SUBJECTIVE: The patient was seen and examined at the bedside today morning in the intensive care unit (ICU). She continues to be intubated. Last 24-hour events were noted. The patient was getting more acidotic. She was given a dose of 1 ampule of intravenous (IV) sodium bicarbonate. Her troponins are bumping up. It has bumped up to 35.4; and because of that, the plan is made to transfer the patient to [facility] for cardiac catheterization. The patient was hypotensive overnight, as well. So, she had to be started on Levophed at 2 mcg. Blood pressures are better optimized. The patient is still nonoliguric at this time. There is a slight bump in the creatinine from 1.3 to 1.4 today. Electrolytes are within the acceptable range. The patient is unable to provide any review of systems because she is intubated and sedated. OBJECTIVE: Vital signs: Temperature is 100 degrees Fahrenheit today morning, blood pressure 112/59, pulse is 116, respiratory rate of 22, saturating 96% on the vent with 40% FIO2. Intake and output: Urine output recorded is 1.3 liters yesterday, 520 mL so far today since overnight. Weight in the bed scale is 94.4 kg. PHYSICAL EXAMINATION: General: The patient is intubated, sedated, laying in the bed. Head and neck examination: Eyes are closed. Pupils equally round and reactive to light. Mucous membranes are moist. Neck is supple. There is mildly elevated jugular venous distention (JVD). Cardiovascular: S1, S2, tachycardia. No edema of the bilateral lower extremities. Respiratory: Expiratory rhonchi. Moderate amount all over the lungs and transmitted breath sounds from the endotracheal tube. Abdomen: Is soft, obese. Positive bowel sounds. No organomegaly. Genitourinary: She has an indwelling Gay catheter. Musculoskeletal: No clubbing or cyanosis. No edema of the bilateral lower extremities. 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 LABORATORY REVIEW: Complete blood count (CBC) showed a WBC of 20.6, hemoglobin is 9.3, platelets are 352. Arterial blood gas (ABG) done today morning showed a pH of 7.2, pCO2 of 52, pO2 of 90, bicarbonate is 23. Basic metabolic profile (BMP) today morning showed sodium 137, potassium is 5, chloride 105, bicarbonate 26, BUN 56, creatinine is 1.4, it was 1.3 yesterday, calcium 7.5, phosphorus is 3.4, AST 205, ALT is 116, alkaline phosphatase is 147, troponin is at 35.4, with albumin of 2.5. MICROBIOLOGY: Urine culture is growing more than 100,000 Escherichia (E.) coli, which is sensitive to meropenem, which the patient is already receiving. Sputum culture is growing Streptococcus agalactiae group B. IMAGING: A chest x-ray was done today morning, which showed diffuse prominence of the pulmonary interstitial markings consistent with interstitial edema. CURRENT INPATIENT MEDICATIONS: The patient's medications were all reviewed by me. She is currently on Levophed at 2 mcg. She is getting D5 half-normal saline at 50 mL an hour, which I am stopping because of pulmonary edema on the x-ray. She has been started on heparin drip by cardiology. She continues to be on propofol. She is on meropenem 1 gram IV every 5 hours. She is also on vancomycin 1 gram every 12 hours, which was started yesterday; and she was given one dose of sodium bicarbonate 50 mEq IV today morning. ASSESSMENT AND PLAN: 1. Acute renal failure. The patient has nonoliguric renal failure secondary to use of IV contrast and episodes of hypotension secondary to sepsis and recent koo-OM-fdxqatu elevation myocardial infarction (NSTEMI). Because of the evidence of pulmonary edema on the chest x-ray, I am stopping the IV fluid hydration. The patient is still making around 50 mL of urine an hour. Continue to monitor for renal improvement. Electrolytes are within the acceptable range. 2. Septic shock secondary to Escherichia (E.) coli urinary tract infection (UTI). The patient is currently on IV meropenem. She is requiring Levophed at 2 mcg. Blood pressures are optimal. Try to maintain a mean arterial pressure (MAP) of above 70. 3. Acute hypercapnic respiratory failure. The patient is vent dependent at this time. She has history of advanced chronic obstructive pulmonary disease (COPD). Currently, she is getting steroids and nebulizations. Sputum cultures are growing a Streptococcus agalactiae. She is currently on vancomycin and meropenem, which adequately should cover her. The rest of the management is as per pulmonary service. 4. Pulmonary edema. It is secondary to etw-AR-rxbdrbhks myocardial infarction (SC). She is on pressors. I cannot give her IV diuretics at this time. However, I am stopping the IV fluids at this time. 5. Diabetes mellitus type 2, insulin dependent. The patient is getting insulin drip. The patient is nothing by mouth, and IV D5 is being stopped. So, insulin dose can be decreased according to the protocol. 6. Sfk-EB-fkpvvflgg myocardial infarction. The patient is being of followed by cardiology. She has been started on heparin drip; and because of hypotension, angiotensin-converting enzyme (JANELL) inhibitors or beta blockers are not being used. The patient is being transferred to [facility] for cardiac catheterization. TOTAL CRITICAL CARE TIME SPENT: In the management of this patient today morning in the ICU was 45 minutes, excluding all the procedures.
--- NOTE | 2019-02-28 08:26 | ECGEPIP ---
[facility] Test Date: 2019-02-27 Pat Name: BHAVIK PINEDA Department: Room: [place] [address] Gender: Female Dye Operator: CYNDEE : [id number] Requested By: Bismark Rapp Order Number: [id number] Reading MD: Avinash Flores Measurements Intervals [place] Rate: 110 P: [place]: 0 QRS: 56 QRSD: 102 T: 73 QT: 292 QTc: 396 Interpretive Statements Sinus tachycardia Nonspecific ST-T wave abnormalities No significant change when compared to prior tracing of 02/26/2019 Electronically Signed on 02-28-2019 8:26:02 EST by Avinash Flores
[2019-03-01 08:10] LABS: BORDETELLA PARAPERTUSSIS PCR Negative (Negative); BORDETELLA PERTUSSIS BY PCR Negative (Negative)
== END 2019-02-27 12:20 | disposition short-term general hospital (02) | DRG 133 ==
LOC: M ED 21:29 → M ED INP 02-25 00:11 → M ICU 02-25 01:27
PROVIDERS: ADMIT Internal Medicine Pulmonary Disease; ATTEND Internal Medicine Pulmonary Disease
PROC: 5A1945Z Respiratory Ventilation, 24-96 Consecutive Hours (ICD-10-PCS; principal; 2019-02-25)
PROC: 02HV33Z Insertion of Infusion Device into Superior Vena Cava, Percutaneous Approach (ICD-10-PCS; 2019-02-26)
DX: J96.21 Acute and chronic respiratory failure with hypoxia (principal); J96.22 Acute and chronic respiratory failure with hypercapnia; J44.1 Chronic obstructive pulmonary disease with (acute) exacerbation; A41.9 Sepsis, unspecified organism; N17.9 Acute kidney failure, unspecified; I50.23 Acute on chronic systolic (congestive) heart failure; R65.21 Severe sepsis with septic shock; J81.1 Chronic pulmonary edema; N39.0 Urinary tract infection, site not specified; I21.4 Non-ST elevation (NSTEMI) myocardial infarction; F17.200 Nicotine dependence, unspecified, uncomplicated; G47.33 Obstructive sleep apnea (adult) (pediatric); E11.51 Type 2 diabetes mellitus with diabetic peripheral angiopathy without gangrene; I51.81 Takotsubo syndrome; Z79.899 Other long term (current) drug therapy; Z79.4 Long term (current) use of insulin; Z88.5 Allergy status to narcotic agent; Z88.0 Allergy status to penicillin; R91.8 Other nonspecific abnormal finding of lung field; E78.00 Pure hypercholesterolemia, unspecified; I11.0 Hypertensive heart disease with heart failure; K62.3 Rectal prolapse; Z86.73 Personal history of transient ischemic attack (TIA), and cerebral infarction without residual deficits; E87.2 Acidosis; Z79.82 Long term (current) use of aspirin; I95.9 Hypotension, unspecified; B96.29 Other Escherichia coli [E. coli] as the cause of diseases classified elsewhere